=== PATIENT | female | born 1965 | race Caucasian/White ===

== ENCOUNTER → 2020-11-09 12:21 | Outpatient (CLI) | payer BC, SELFPAY ==
[2020-11-09 15:26] LABS: Absolute Lymphocyte Count 2.77 X10^3/uL (0.83-4.51); Absolute Neutrophil Count 6.7 X10^3/uL (2.0-7.7); Basophil# 0.04 X10^3/uL; Basophil% 0.4 % (0-1); Eosinophil# 0.28 X10^3/uL; Eosinophils% 2.7 % (0-5); Hemoglobin 13.2 g/dL (12.0-15.0); Lymphocyte # 2.77 X10^3/ul (4.0); Lymphocyte % 26.6 % (19-41); Mean Corp Hgb Conc 31.4 g/dL (32-36); Mean Corpuscular Hgb 28.4 pg (27.0-32.0); Mean Corpuscular Volume 90.5 fL (81-99); Mean Platelet Vol. 9.9 fl (6.2-12.0); Monocyte% 5.8 % (0-10); NRBC Flagged by Analyzer 0 % (0-5); Neutrophil # 6.68 X10^3/uL (2.7-7.7); Neutrophil % 64.2 % (47-70); Platelet Count 394 K/mm3 (150-450); RBC Distribution Width CV 12.8 % (11.6-14.6); RBC Distribution Width SD 42.5 fl (35.1-43.9); Red Blood Count 4.64 M/mm3 (4.2-5.4); White Blood Count 10.4 K/mm3 (4.4-11.0)
[2020-11-09 15:57] LABS: ALB/GLOB Ratio 0.8 RATIO (0.9-2.4); AST(SGOT) 16 U/L (15-37); Alanine Aminotransfer ALT/SGPT 21 U/L (13-56); Albumin, Serum 3.4 g/dL (3.2-5.0); Alkaline Phosphatase 108 U/L (45-117); Anion Gap 4 (5-15); BUN 12 mg/dL (7-18); BUN/Creat Ratio 13.4 RATIO (10-20); Calcium,Total 8.8 mg/dL (8.5-10.1); Chloride 104 mmol/L (98-107); EST Glomerular Filtration Rate 69 mL/min (>60); Est Glom Filt Rate - Afr Amer 83 mL/min (>60); Globulin 4.3 g/dL (2.2-4.2); Glucose 95 mg/dL (74-106); Potassium 4.1 mmol/L (3.5-5.1); Protein, Total 7.7 g/dL (6.4-8.2); Sodium Level 136 mmol/L (136-145); Thyroid Stim Hormone (TSH) 1.21 uIU/mL (0.358-3.74)
== END ==
PROVIDERS: PCP Family Medicine; Referring Provider Family Medicine; Visit Provider Family Medicine
DX: I10 Essential (primary) hypertension (principal); E03.9 Hypothyroidism, unspecified
CPT/HCPCS: 36415; 80053; 84443; 85025

== ENCOUNTER → 2020-11-28 08:14 | Outpatient (CLI) | payer BC, SELFPAY ==
[2020-11-28 10:34] LABS: Cholesterol 208 mg/dL (200); High Density Lipoprotein 39 mg/dL; Triglycerides 213 mg/dL; Very Low Density Lipoprotein 43 mg/dL (5-40)
== END ==
PROVIDERS: PCP Family Medicine; Referring Provider Family Medicine; Visit Provider Family Medicine
DX: I10 Essential (primary) hypertension (principal)
CPT/HCPCS: 36415; 80061

== ENCOUNTER → 2020-12-13 14:26 | Outpatient (CLI) | payer BC, SELFPAY ==
--- NOTE | 2020-12-13 14:30 | BI_ITS ---
MAMMOGRAPHY - BILATERAL SCREENING REASON FOR EXAM: Female, 55 years old. Routine annual screening examination. PERTINENT HISTORY: Non-contributory. TECHNIQUE: Digital bilateral breast vincenzo (3D mammographic acquisition) in the CC and MLO projections. 2-D mediolateral oblique (MLO) and craniocaudad (CC) views of both breasts were obtained. CAD: Full Field Digital Mammography with Computer Added Detection was performed. COMPARISON: Comparison is made with prior outside examination dated 07/25/2016. FINDINGS: Breast Composition: The breasts are heterogeneously dense, which may obscure small masses. There are no dominant masses or suspicious calcifications. Small benign-appearing bilateral axillary lymph nodes. No other significant abnormalities are identified. There has been no significant change since the prior study. BI/SCRN MAMM (CAD)W/VINCENZO BILAT IMPRESSION: Stable bilateral screening mammogram. Yearly follow-up mammogram recommended. (A) ASSESSMENT CATEGORY: BIRADS Category 2: Benign. A letter regarding these results will be sent to the patient by the facility within 30 days. Approximately 10% of breast cancers are not detected by mammography. A normal mammogram should not delay biopsy of a clinically suspicious abnormality. [id number] Electronically Signed: Kosta Mendez MD at 15:08 EDT , Service support ,
--- NOTE | 2020-12-13 14:30 | BD_ITS ---
STUDY: DUAL ENERGY X-RAY ABSORPTIOMETRY / DXA REASON FOR EXAM: Female, 55 years old. 733.90OsteopeniaBONE DENSITY REASON FOR EXAM TECHNIQUE: Bone Mineral Density (BMD) measurements of lumbar spine and bilateral hips were obtained. COMPARISON: None. FINDINGS: Lumbar Spine (L1-L4): g/cm2 (1.068) / T-score (-0.9) / Z-score (0.1) Findings are suggestive of normal bone density with a low fracture risk. Left Femur Total: g/cm2 (0.911) / T-score (-0.8) / Z-score (0.0) Left Femoral Neck: g/cm2 (0.806) / T-score (-1.7) / Z-score (-0.5) Right Femur Total: g/cm2 (0.988) / T-score (-0.2) / Z-score (0.6) Right Femoral Neck: g/cm2 (0.871) / T-score (-1.2) / Z-score (-0.1) BD/Dexa Bone Density Study IMPRESSION: The patient is considered osteopenic as outlined below according to World Jan Organization (WHO) criteria with a moderate fracture risk. Reference Information: The T-score is the number of standard deviations above or below the standard which is normal for young adults at their peak bone mineral density. The World Health Organization (WHO) interprets the T-scores as follows: Above -1 Normal bone density Between -1 and -2.5 Osteopenia Equal to / or below -2.5 Osteoporosis As a practical clinical guideline, osteopenia may be graded as follows: Mild -1 through -1.5 Moderate -1.6 through -2.0 Severe -2.1 through -2.4 The Z-score is the number of standard deviations above or below age-matched controls. A Z-score of less than -1.5 would be considered abnormal. References: 1. NIH Osteoporosis and Related Bone Diseases www osteo.org 2. International Society for Clinical Densitometry www iscd.org 3. National Osteoporosis Foundation www nof.org Electronically Signed: Kosta Mendez MD at 15:34 EDT , Service support ,
== END ==
LOC: OPBD 14:28
PROVIDERS: PCP Family Medicine; Referring Provider Family Medicine; Visit Provider Family Medicine
DX: Z12.31 Encounter for screening mammogram for malignant neoplasm of breast (principal); M85.80 Other specified disorders of bone density and structure, unspecified site
CPT/HCPCS: 77063; 77067; 77080

== ENCOUNTER → 2020-12-14 17:17 | Outpatient (CLI) | payer BC, SELFPAY ==
[2020-12-21 05:10] LABS: HPV APTIMA, High Risk Negative (Negative); HPV Reflexed? NOT INDICATED
== END ==
PROVIDERS: PCP Family Medicine; Referring Provider Registered Nurse; Visit Provider Registered Nurse
DX: Z01.419 Encounter for gynecological examination (general) (routine) without abnormal findings (principal)
CPT/HCPCS: 88175; G0145

== ENCOUNTER → 2021-01-11 14:40 | Outpatient (CLI) | payer BC, SELFPAY ==
[2021-01-11 17:51] LABS: Anion Gap 7 (5-15); BUN 13 mg/dL (7-18); BUN/Creat Ratio 12.3 RATIO (10-20); Calcium,Total 9.1 mg/dL (8.5-10.1); Chloride 103 mmol/L (98-107); Creatinine, Serum 1.06 mg/dL (0.55-1.02); EST Glomerular Filtration Rate 57 mL/min (>60); Est Glom Filt Rate - Afr Amer 69 mL/min (>60); Glucose 168 mg/dL (74-106); Potassium 3.5 mmol/L (3.5-5.1); Sodium Level 138 mmol/L (136-145)
== END ==
LOC: MFPLAB 14:41
PROVIDERS: PCP Family Medicine; Referring Provider Family Medicine; Visit Provider Family Medicine
DX: I10 Essential (primary) hypertension (principal)
CPT/HCPCS: 36415; 80048

== ENCOUNTER 2022-04-08 11:25 | Emergency (ER) | payer BC, SELFPAY ==
[2022-04-08 11:27] VITALS: BP 187/99; PULSE 96; RESP 18; TEMP 36.4; O2SAT 99; BMI 36.0
[2022-04-08 11:42] VITALS: BP 225/95; PULSE 84
[2022-04-08 11:51] VITALS: BP 176/95
--- NOTE | 2022-04-08 11:56 | EKG12_ITS ---
Test Reason : confusion Blood Pressure : / mmHG Vent. Rate : 071 BPM Atrial Rate : 071 BPM P-R Int : 140 ms QRS Dur : 096 ms QT Int : 382 ms P-R-T Axes : 040 055 052 degrees QTc Int : 415 ms Normal sinus rhythm Normal ECG Confirmed by GABRIELE ANAYA, VIVIEN ([id number]), technical editor HAYLEY MAC ([id number]) on 04/09/2022 11:08:36 AM Referred By: Julio C Confirmed By:VIVIEN SUAZO MD
--- NOTE | 2022-04-08 11:56 | RAD_ITS ---
STUDY: X-RAY CHEST REASON FOR EXAM: Female, 56 years old. Hypertension. Vertigo. TECHNIQUE: Single AP portable view of the chest. COMPARISON: None. FINDINGS: EKG electrodes are seen. Hyperinflation. The lungs are clear. There is no demonstrated pleural abnormality. Normal size heart. Normal mediastinum and fredis. Normal visualized pulmonary arteries. Normal visualized aortic arch and descending thoracic aorta. Normal visualized thoracic spine. Normal visualized ribs, clavicles, and shoulders. There is no demonstrated abnormality of the visualized soft tissue structures of the upper abdomen. RAD/Chest 1 View (Portable) IMPRESSION: Hyperinflation. The lungs are clear. Electronically Signed: Kosta Mendez MD at 12:46 EDT ,
--- NOTE | 2022-04-08 11:56 | CT_ITS ---
STUDY: CT BRAIN WITHOUT CONTRAST REASON FOR EXAM: Female, 56 years old. Confusion RADIATION DOSAGE (If Supplied By Facility): CTDIvol = ( 44.99 ) mGy, DLP = ( 796.11 ) mGycm TECHNIQUE: Transaxial CT imaging of the brain was performed without administration of intravenous contrast material. Individualized dose optimization techniques were used for this CT. COMPARISON: No relevant priors. FINDINGS: Normal soft tissue structures. There is hyperostosis frontalis internus. Normal size ventricles and extra-axial spaces for the patient''s age. There is a 3 mm lacuna in the deep right frontal lobe. Normal white matter tracts of the cerebral hemispheres. There are small punctate calcifications of the basal ganglia which are seen in the aging brain as a normal variant. Normal brainstem. Normal cerebellum. There is no intracranial hemorrhage. There are no findings of an acute ischemic infarction. Atherosclerotic plaque formation of the vertebral arteries and cavernous portions of the internal carotid arteries bilaterally. Normal visualized paranasal sinuses. CT/Brain/Head without Contrast IMPRESSION: 3 mm lacuna in the deep right frontal lobe. Electronically Signed: Kosta Mendez MD at 12:32 EDT ,
--- NOTE | 2022-04-08 11:58 | EDS_ITS ---
HPI History of Present Illness Chief Complaint: Confusion Detail of Chief Complaint: Confusion that began around 9 AM Informant: patient Narrative Narrative: Patient presents to the emergency department with an episode of confusion around 9 AM. Patient states she had gone to the restroom to urinate and before she even started standing up she started feeling odd. Patient felt like everything slowed down including her speech. Patient felt somewhat lightheaded and fell like she needed to hold onto things so she did not fall or pass out. She denies vertiginous symptoms. Patient denied weakness in the extremities and denied slurred speech. She denied vision changes. She denied facial droop. Patient states symptoms lasted about an hour and a half and then slowly started to resolve. She is never had an episode like that before. Patient currently being treated for UTI and is on Bactrim. Patient still with some dysuria. Currently patient symptoms resolved and she is back to her baseline. Prior similar symptoms: No [facility] Medical History (Updated 04/08/22 @ 15:[address] Kana Chery, ) HTN (hypertension) Hypothyroid Home Medications lisinopril 20 mg-hydrochlorothiazide 12.5 mg tablet 1 tab PO DAILY 04/08/22 [History Last Taken Unknown] phenazopyridine 200 mg tablet 200 mg PO BID 04/08/22 [History Last Taken Unknown] progesterone micronized 200 mg capsule 200 cap PO DAILY 04/08/22 [History Last Taken Unknown] sulfamethoxazole 800 mg-trimethoprim 160 mg tablet 1 tab PO BID 04/08/22 [History Last Taken Unknown] thyroid (pork) 30 mg tablet ([place] Thyroid) 1 tab PO DAILY 04/08/22 [History Last Taken Unknown] Allergy/AdvReac Type Severity Reaction Status Date / Time codeine Allergy Nausea Verified 04/08/22 11:26 Penicillins [PCN] Allergy Rash Verified 04/08/22 11:26 Social History Smoking Status: Current every day smoker tobacco type: e-cigarettes ROS ROS ED Review of Systems ROS Unobtainable: other Constitutional Constitutional ED: Reports lethargy; Denies chills, fever(s), sweats or weight loss Eyes Eyes: Denies blurry vision, change in vision or diplopia ENT ENT ED: Denies rhinorrhea or sore throat Cardiovascular Cardiovascular: Denies chest pain, orthopnea or racing heartbeat Respiratory/Chest Respiratory/Chest: Reports dyspnea and dyspnea on exertion; Denies cough, orthopnea or sputum Gastrointestinal Gastrointestinal: Denies abdominal pain, diarrhea, nausea or vomiting Genitourinary Genitourinary ED: Denies dysuria, hematuria or urinary frequency Musculoskeletal Musculoskeletal: Denies arthralgias, back pain, myalgias or neck pain Integumentary Denies abscess, Abrasions or rash Neurologic Neurologic: Reports other Details: Confusion, lightheadedness, slow speech ; Denies headache(s) or weakness Psychiatric Psychiatric: Denies anxiety, depression or suicidal thoughts Endocrine Endocrinology: Denies polydipsia, polyphagia or polyuria Hematologic/Lymphatic Hematologic/Lymphatic: Denies easy bleeding, easy bruising or lymphadenopathy Allergic/Immunologic Allergic/Immunologic ED: Denies mouth swelling, tongue swelling or urticaria EXAM Physical Exam Const Vital Signs: 04/08/22 11:27 04/08/22 11:42 04/08/22 11:51 Temperature 97.6 F L Temperature Source Temporal Pulse Rate 96 84 Respiratory Rate 18 Blood Pressure 187/99 H 225/95 H 176/95 H Blood Pressure Mean 128 138 122 Pulse Ox 99 Oxygen Delivery Method Room Air 04/08/22 13:44 Temperature Temperature Source Pulse Rate 79 Respiratory Rate 18 Blood Pressure 118/78 Blood Pressure Mean 91 Pulse Ox 98 Oxygen Delivery Method Room Air Positive well nourished and well developed General Appearance ED: well developed and NAD HEENT Reports TM's clear and moist mucous membranes normocephalic and atraumatic; Negative for trauma or tenderness Tympanic Membrane ED: Yes TM's clear Eyes PERRL and EOMs intact bilaterally General Eye ED: Negative for pale conjunctiva or scleral icterus Neck no lymphadenopathy, supple and no JVD General: Negative for tenderness Chest Wall inspection of chest normal and palpation of chest normal Chest: Negative for tenderness Resp normal respiratory effort and clear to auscultation bilaterally Effort and Inspection: Negative for respiratory distress or pain with movement Auscultation: Negative for rhonchi, wheezes or diminished lung sounds Cardio regular rate, regular rhythm, S1 normal heart sound, S2 normal heart sound and no murmurs Peripheral Pulses: pulses 2+ throughout GI normal to inspection, nondistended, normoactive bowel sounds, soft to palpation, non-tender, non-distended and no masses Back/Spine no CVA tenderness and no thoracic nor lumbar tenderness Extremity normal to inspection General Extremety ED: Negative for edema General Extremity: Negative for edema Neuro oriented x3, CN's II-XII intact bilaterally, no sensory deficits noted and gait normal Neuro Narrative: Finger-nose and heel gastelum testing within normal limits, negative Romberg, negative for drift, fundi benign. NIH stroke scale 0. Sensorium / Orientation: awake, alert, oriented to person, oriented to place and oriented to time Motor Exam: strength 5/5 throughout and strength abnormal Psych mental status grossly normal Skin no rashes or lesions noted and no wounds MDM MDM MDM Narrative Medical decision making narrative: Lab work unremarkable. CT scan of the brain initially showed lacunar infarct in the right frontal white matter and calcifications in the carotid arteries. I did obtain CTAs of the head and neck which showed 50 to 60% stenosis of the carotid arteries with no large vessel occlusions noted. I discussed case with hospitalist who recommended obtaining an MRI of the brain and if normal patient could be discharged to home. MRI results pending and case turned over to evening physician awaiting results. Lab Data Attestation: I reviewed the patient's lab results. Labs: Laboratory Results - last 24 hr 04/08/22 04/08/22 04/08/22 11:45 11:50 11:50 WBC 9.3 RBC 4.46 Hgb 13.2 Hct 40.8 MCV 91.5 MCH 29.6 MCHC 32.4 RDW Std Deviation 40.5 RDW Coeff of Christiano 12.1 Plt Count 388 MPV 9.3 Immature Gran % (Auto) 0.500 Neut % (Auto) 62.5 Lymph % (Auto) 27.1 Castro % (Auto) 5.9 Eos % (Auto) 3.7 Baso % (Auto) 0.3 Absolute Neuts (auto) 5.8 Absolute Lymphs (auto) 2.52 Nucleated RBC % 0 Sodium 137 Potassium 3.5 Chloride 103 Carbon Dioxide 29.0 Anion Gap 5 BUN 9 Creatinine 0.78 Estim Creat Clear Calc 76.45 Est GFR (MDRD) Af Amer 97 Est GFR (MDRD) Non-Af 80 BUN/Creatinine Ratio 11.5 Glucose 125 H Calcium 9.2 Troponin I High Sens 6 Urine Color Yellow Urine Clarity Sl. Cloudy Urine pH 7.0 Ur Specific [place] 1.010 Urine Protein Negative Urine Glucose (UA) Normal Urine Ketones Negative Urine Occult Blood 10 H Urine Nitrite Negative Urine Bilirubin Negative Urine Urobilinogen Normal Ur Leukocyte Esterase 25 H Urine RBC 0-5 SEEN Urine WBC 0-5 SEEN Ur Squamous Epith Cells 0-5 SEEN Urine Bacteria 1+ Urine Mucus 0 SEEN Radiography Diagnostic Testing: Clinical Impression(s) from Imaging Studies Brain CT 04/08/22 11:56 IMPRESSION: 3 mm lacuna in the deep right frontal lobe. Electronically Signed: Kosta Mendez MD at 12:32 EDT , Chest X-Ray 04/08/22 11:56 IMPRESSION: Hyperinflation. The lungs are clear. Electronically Signed: Kosta Mendez MD at 12:46 EDT , Head/Neck CTA 04/08/22 12:47 IMPRESSION: Atherosclerotic plaque formation at the origin of the right internal carotid artery causing between 50 and 69% stenosis. Atherosclerotic plaque formation at the origin of the left internal carotid artery causing less than 50% stenosis. Electronically Signed: Kosta Mendez MD at 13:42 EDT , 1 view chest x-ray obtained interpreted by myself no acute disease process. Radiology in agreement. EKG Initial EKG: Attestation: I personally reviewed and interpreted this EKG as follows: Comments: Sinus rhythm with a rate of 71 bpm with no acute ST segment changes Discharge Plan Triage Chief Complaint: Confusion Other Complaint: Syncope ED Provider: Kana Chery Dx/Rx/DC Orders Clinical Impression: Altered mental status Prescriptions: No Action lisinopril-hydrochlorothiazide 20-12.5 mg tablet 1 tab PO DAILY Label Comments: TAKE 1 TABLET BY MOUTH EVERY DAY phenazopyridine 200 mg tablet 200 mg PO BID Label Comments: TAKE 1 TABLET BY MOUTH THREE TIMES A DAY sulfamethoxazole-trimethoprim 800-160 mg tablet 1 tab PO BID Label Comments: TAKE 1 TABLET BY MOUTH TWICE A DAY progesterone micronized 200 mg capsule 200 cap PO DAILY Label Comments: TAKE 1 CAPSULE BY MOUTH DAILY thyroid (pork) [[place] Thyroid] 30 mg tablet 1 tab PO DAILY Label Comments: TAKE 1 TABLET BY MOUTH EVERY MORNING ON EMPTY STOMACH Primary Care Provider: Sourav Xie Referrals: Sourav Xie MD [Primary Care Provider] -
[2022-04-08] MEDS: 0.9% Normal Saline 1,000 ML 1000 ML IV (12:03)
[2022-04-08 12:06] LABS: Mucous, Urine 0 SEEN /hpf (<or=2+)
[2022-04-08 12:09] LABS: Absolute Lymphocyte Count 2.52 X10^3/uL (0.83-4.51); Absolute Neutrophil Count 5.8 X10^3/uL (2.0-7.7); Basophil# 0.03 X10^3/uL; Basophil% 0.3 % (0-1); Eosinophil# 0.34 X10^3/uL; Eosinophils% 3.7 % (0-5); Hematocrit 40.8 % (37-47); Hemoglobin 13.2 g/dL (12.0-15.0); Lymphocyte # 2.52 X10^3/ul (0.83-4.51); Lymphocyte % 27.1 % (19-41); Mean Corp Hgb Conc 32.4 g/dL (32-36); Mean Corpuscular Hgb 29.6 pg (27.0-32.0); Mean Corpuscular Volume 91.5 fL (81-99); Mean Platelet Vol. 9.3 fl (6.2-12.0); Monocyte# 0.55 X10^3/uL; Monocyte% 5.9 % (0-10); NRBC Flagged by Analyzer 0 % (0-5); Neutrophil # 5.82 X10^3/uL (2.7-7.7); Neutrophil % 62.5 % (47-70); Platelet Count 388 K/mm3 (150-450); RBC Distribution Width CV 12.1 % (11.6-14.6); RBC Distribution Width SD 40.5 fl (35.1-43.9); Red Blood Count 4.46 M/mm3 (4.2-5.4); White Blood Count 9.3 K/mm3 (4.4-11.0)
[2022-04-08 12:24] LABS: Color, Urine Yellow (Yellow); Glucose, Dipstick Normal (Normal); Ketone-Dipstick Negative (Negative); Leukocyte Esterase-Dipstick 25 /ul (Negative); Nitrite-Dipstick Negative (Negative); Occult Blood-Urine 10 /ul (Negative); Protein-Dipstick Negative (Negative); Urine Bilirubin Dipstick Negative (Negative); Urine Clarity Sl. Cloudy (Clear); Urine Urobilinogen Normal (Normal)
[2022-04-08 12:34] LABS: Anion Gap 5 (5-15); BUN 9 mg/dL (7-18); BUN/Creat Ratio 11.5 RATIO (10-20); Calcium,Total 9.2 mg/dL (8.5-10.1); Chloride 103 mmol/L (98-107); Creatinine, Serum 0.78 mg/dL (0.55-1.02); EST Glomerular Filtration Rate 80 mL/min (>60); Est Glom Filt Rate - Afr Amer 97 mL/min (>60); Estimated Creatinine Clearance 76.45 ml/min; Glucose 125 mg/dL (74-106); Potassium 3.5 mmol/L (3.5-5.1); Sodium Level 137 mmol/L (136-145); Troponin-I HS 6 pg/mL (3.0-54.0)
[2022-04-08 12:39] LABS: Red Blood Cells-Urine 0-5 SEEN /hpf (0-5); Squamous Epithelial Cells - UA 0-5 SEEN /hpf (5-10)
[2022-04-08 12:40] LABS: Bacteria 1+ /hpf (None Seen); White Blood Cells 0-5 SEEN /hpf (0-5)
--- NOTE | 2022-04-08 12:47 | CT_ITS ---
STUDY: CTA HEAD AND NECK WITH CONTRAST REASON FOR EXAM: Female, 56 years old. tia RADIATION DOSAGE (If Supplied By Facility): CTDIvol = ( 20.07 ) mGy, DLP = ( 785.25 ) mGycm TECHNIQUE: CT angiography was performed with a multi-detector CT scanner. Data acquisition was obtained from the skull base through the vertex following intravenous administration of IV 100mL [id number]-[id number]. MIP images were reconstructed from the axial data set. Post-processing of the angiographic images was performed, with multiplanar reformation and 3D reconstruction. Individualized dose optimization techniques were used for this CT. COMPARISON: No relevant priors. FINDINGS: Normal bilateral petrous carotid arteries. There is calcified plaque formation of the right cavernous carotid artery, without a cross-sectional luminal stenosis. There is calcified plaque formation of the left cavernous carotid artery, without a cross-sectional luminal stenosis. Normal right A1 segments of the anterior cerebral artery. Normal left A1 segments of the anterior cerebral artery. Normal intact anterior communicating artery (ACOM). Normal bilateral A2 segments of the anterior cerebral arteries. Normal right M1 and M2 segments of the middle cerebral arteries, with a normal M1 bifurcation. Normal left M1 and M2 segments of the middle cerebral arteries, with a normal M1 bifurcation. Normal right posterior communicating artery (PCOM). Normal left posterior communicating artery (PCOM). Normal bilateral vertebral arteries. Normal basilar artery with a normal basilar bifurcation. The visualized bilateral superior cerebellar (SCA) arteries are normal. Normal bilateral P1, P2 and visualized P3 segments of the posterior cerebral arteries. There is no demonstrated aneurysm of the [place] of [place]. AORTIC ARCH: There is atherosclerotic calcific plaque formation of the aortic arch and great vessels arising from the aortic arch, without a hemodynamically significant stenosis. There is a normal origin of the brachiocephalic, left common carotid, and left subclavian arteries. RIGHT CAROTID ARTERIES: Normal right common carotid artery (CCA). Normal right common carotid bulb. There is moderate atherosclerotic plaque formation of the origin of the right internal carotid artery with an estimated stenosis of 50-69% stenosis. Normal visualized cervical portion of the right internal carotid artery. Normal origin of the right external carotid artery (ECA). LEFT CAROTID ARTERIES: Normal left common carotid artery (CCA). Normal left common carotid bulb. There is mild atherosclerotic plaque formation of the origin of the left internal carotid artery with less than 50% cross sectional diameter stenosis. Normal visualized cervical portion of the left internal carotid artery. Normal origin of the left external carotid artery (ECA). VERTEBRAL ARTERIES: Normal bilateral vertebral arteries. CT/CTA Head AND Neck W/ Contrast IMPRESSION: Atherosclerotic plaque formation at the origin of the right internal carotid artery causing between 50 and 69% stenosis. Atherosclerotic plaque formation at the origin of the left internal carotid artery causing less than 50% stenosis. Electronically Signed: Kosta Mendez MD at 13:42 EDT ,
[2022-04-08 13:44] VITALS: BP 118/78; PULSE 79; RESP 18; O2SAT 98
--- NOTE | 2022-04-08 14:28 | MRI_ITS ---
EXAM: MR HEAD WITHOUT INTRAVENOUS CONTRAST CLINICAL INDICATION: TIA. TECHNIQUE: Multiplanar and multisequence MR images of the brain were obtained without intravenous contrast. This report was created using [employer] report generation technology. COMPARISON: CT head without contrast and CTA head and neck with contrast 04/08/2022. FINDINGS: BRAIN AND EXTRA-AXIAL SPACES: Unremarkable. No intra- or extra-axial hemorrhage. No evidence of acute infarct. No intracranial mass or mass effect. There is preservation of the posada/white matter interface. Posterior fossa structures are unremarkable. Ventricles are appropriate for age. No hydrocephalus. Basal cisterns are patent. SELLA: Unremarkable. Normal sella turcica, pituitary gland, infundibular stalk, optic chiasm and hypothalamus. AUDITORY SYSTEM: Unremarkable. The internal auditory canals are patent. BONES/JOINTS: Unremarkable. No discrete lytic or blastic abnormalities. SINUSES: Unremarkable as visualized. Clear. MASTOID AIR CELLS: Unremarkable as visualized. Clear. ORBITS: Unremarkable as visualized. Both globes, extraocular muscles, optic nerves and retrobulbar fat appear unremarkable. VASCULATURE: Unremarkable as visualized. Normal flow voids in the major intracranial circulation. MRI/Brain without Contrast IMPRESSION: Normal MRI brain without intravenous contrast. Electronically Signed: Efren Fernández MD at 15:47 EDT ,
[2022-04-08 16:35] VITALS: BP 121/78; PULSE 74; RESP 16; O2SAT 98
== END 2022-04-08 16:37 | disposition home or self-care (01) ==
PROVIDERS: Emergency Provider Emergency Medicine; PCP Family Medicine; Visit Provider Emergency Medicine
DX: R55 Syncope and collapse (principal); I63.81 Other cerebral infarction due to occlusion or stenosis of small artery; I65.23 Occlusion and stenosis of bilateral carotid arteries; M48.02 Spinal stenosis, cervical region; I10 Essential (primary) hypertension; F17.210 Nicotine dependence, cigarettes, uncomplicated; E03.9 Hypothyroidism, unspecified
CPT/HCPCS: 70450; 70496; 70498; 70551; 71045; 80048; 81001; 84484; 85025; 93005; 99283; J7030; Q9967

== ENCOUNTER → 2022-04-22 | Outpatient (CLI) | payer BC, SELFPAY | END | disposition home or self-care (01) | PROVIDERS: PCP Family Medicine; Visit Provider Family Medicine | DX: U07.1 COVID-19 (principal) | CPT/HCPCS: 87635; U0003; U0005 ==

== ENCOUNTER 2025-09-05 19:27 | Inpatient (IN) | payer SELFPAY ==
[2025-09-05] VITALS (8 sets, daily range): BP systolic 133–179; BP diastolic 87–125; PULSE 72–79; RESP 12–23; TEMP 36.1–36.5; O2SAT 92–97; BMI 35.6; BMI 33.5
--- NOTE | 2025-09-05 20:14 | EKG12_ITS ---
Test Reason : CONFUSION Blood Pressure : */* mmHG Vent. Rate : 79 BPM Atrial Rate : 79 BPM P-R Int : 162 ms QRS Dur : 98 ms QT Int : 358 ms P-R-T Axes : 45 39 25 degrees QTcB Int : 410 ms Normal sinus rhythm Nonspecific T wave abnormality Abnormal ECG Confirmed by TONY ANAYA, DEEPA ([id number]), design editor MARIPOSA GALLOWAY ([id number]) on 09/11/2025 6:19:41 AM Referred By: Confirmed By: DEEPA JIMENEZ MD
--- NOTE | 2025-09-05 20:14 | CT_ITS ---
PROCEDURE: BRAIN/HEAD WITHOUT CONTRAST 09/05/2025 REASON FOR EXAM: AMS TECHNIQUE: Procedure Code: CTBR Modality: CT Procedure: BRAIN/HEAD WITHOUT CONTRAST Coronal and Sagittal reconstruction series were provided. One or more dose reduction techniques were used (e.g., Automated exposure control, adjustment of the mA and/or kV according to patient size, use of iterative reconstruction technique. RADIATION DOSE SUMMARY: CTDlvol: 44.99 mGy DLP: 897 mGycm COMPARISON: 04/08/2022 FINDINGS: BRAIN: No acute intraparenchymal hemorrhage. No mass lesion. No CT evidence for acute territorial infarct. No midline shift or extra-axial collection. VENTRICLES: No hydrocephalus. ORBITS: The orbits are unremarkable. SINUSES AND MASTOIDS: The paranasal sinuses and mastoid air cells are clear. SOFT TISSUES: No acute abnormality seen. BONES: No acute osseous abnormality seen. OTHER: Calcified carotid siphons and vertebral arteries. CT/Brain/Head without Contrast IMPRESSION: No acute intracranial abnormality. Reading Location: [id number]
--- OUTSIDE RECORDS SUMMARY | 2025-09-05 20:40 | XMS RPT_ITS | CCD ---
Author Organization [facility] PUBLISHING DIRECTOR [facility] Allergies Allergy Classification Reported Allergen(s) Allergy Type Date of Onset Reaction(s) Facility (2 sources) Codeine Drug Allergy 04-08-2022 Nausea [facility] Work Phone: (2 sources) Penicillins Allergy to substance 04-08-2022 Rash [facility] Work Phone: Medications Current Medications Medication Drug Class(es) Dates Sig (Normalized) Sig (Original) hydroCHLOROthiazide 12.5 mg / lisinopril 20 mg oral tablet (2 sources) Thiazide Diuretic, Angiotensin Converting Enzyme Inhibitor Start: 2 take 1 tablet by mouth once daily Lisinopril-Hydrochl orothiazide Active 1 TABLET PO DAILY April 08, 2022 12:00am phenazopyridine hydrochloride 200 mg oral tablet (2 sources) Start: 2 take 200 mg by mouth twice daily Phenazopyridine Active 200 MG PO TWICE A DAY April 08, 2022 12:00am progesterone 200 mg oral capsule (2 sources) Progesterone Start: 2 take 1 capsule by mouth once daily Progesterone Micronized Active 200 CAP PO DAILY April 08, 2022 12:00am sulfamethoxazole 800 mg / trimethoprim 160 mg oral tablet (2 sources) Dihydrofolate Reductase Inhibitor Antibacterial, Sulfonamide Antimicrobial Start: 2 take 1 tablet by mouth twice daily Sulfamethoxazole-Tr imethoprim Active 1 TABLET PO TWICE A DAY April 08, 2022 12:00am thyroid (half-way) 30 mg oral tablet (2 sources) Start: 2 take 1 tablet by mouth once daily Thyroid (Pork) ([place] Thyroid) 30 mg tablet Active 1 TABLET PO DAILY April 08, 2022 12:00am Problems Problem Classification Problem Date Documented Da te Episodic/Chronic Residual codes; unclassified (2 sources) Altered mental status; Translations: [Altered mental status, unspecified] Episodic Results Test Name Value Interpretation Reference Range Facility COVID 19, ANTHONY WC(RT COLLECT )on 04-22-2022 SARS-CoV-2 (COVID-19) RNA ANTHONY+probe Ql (Unsp spec) Detected Normal Not Detect [facility] Comment on above: Result Comment: Norm al Reference Range: Not Detected Method:(RT-PCR) real-time reverse transcriptase PCR [employer] JONNATHAN Instrument *The Food and Drug Administration (FDA) has issued an Emergency Use Authorization (EAU) for the JONNATHAN SARS-CoV-2 Assay for the rapid detection of the virus that causes COVID-19. This test has been validated, but the FDAs independent review of this validation is pending. *Negative results do not preclude infection and should not be used as the sole basis for treatment or patient management. Optimum specimen types and timing for peak viral levels during infections caused by SARS-CoV-2 have not been determined. Collection of multiple specimens from the same patient may be necessary to detect the virus. The possibility of a false negative result should be considered if the patient has clinical presentation or has had recent exposure. Performed By: #### L 3400.2405 ####[facility] [address] [place], [place], [id number] Laboratory - Microbiology an d Antimicrobial susceptibilityon 04-22-2022 SARS-CoV-2 (COVID-19) RNA ANTHONY+probe Ql (Unsp spec) Detected Not Detect [facility] Work Phone: Comment on above: Normal Reference Ran ge: Not DetectedMethod:(RT-PCR) real-time reverse transcriptase PCRLuminex JONNTAHAN Instrument*The Food and Drug Administration (FDA) has issued an Emergency Use Authorization (EAU) for the JONNATHAN SARS-CoV-2 Assay for the rapid detection of the virus that causes COVID-19. This test has been validated, but the FDAs independent review of this validation is pending.*Negative results do not preclude infection and should not be used as the sole basis for treatment or patient management. Optimum specimen types and timing for peak viral levels during infections caused by SARS-CoV-2 have not been determined. Collection of multiple specimens from the same patient may be necessary to detect the virus. The possibility of a false negative result should be considered if the patient has clinical presentation or has had recent exposure. 12 Lead EKGon 04-08-2022 12 Lead EKG [facility] Cardiovascular Services [address] [place] [address] 12 Lead EKG 04/08/22 1203 MR#: [id number] Acct: [id number] Name: MAICOL ALEXANDER Rep #: [id number] : 1965 56 From: Ron De Paz MD Attending Dr: Status: DEP ER Ordering Dr: Kana Chery DO Date: 04/08/22 Location: ED Sex: F C Admitted: Test Reason : confusion Blood Pressure : / mmHG Vent. Rate : 071 BPM Atrial Rate : 071 BPM P-R Int : 140 ms QRS Dur : 096 ms QT Int : 382 ms P-R-T Axes : 040 055 052 degrees QTc Int : 415 ms Normal sinus rhythm Normal ECG Confirmed by GABRIELE ANAYA, RON ([id number]), writer editor HAYLEY MAC ([id number]) on 04/09/2022 11:08:36 AM Referred By: Julio C Confirmed By:RON DE PAZ MD 04/09/22 1108 Date Ron De Paz MD CC: Dr. Sourav Xie MD; Dr. Kana Chery DO Signed Normal [facility] Absolute lymphocyte counton 04-08-2022 Lymphocytes Auto (Unsp spec) [#/Vol] 2.52 10*3/uL 0.83-4.51 [facility] Work Phone: Basic Metabolic Profile (BMP )on 04-08-2022 BUN/CRE 11.5 RATIO Normal 10-20 [facility] Comment on above: Order Comment: 'TROP ' Serial specimen #1, #2 or #3: 1 Performed By: #### L 100.0100, L500.2500, L501.4020 #### [facility] Laboratory [address] [place], [address] CA,Total 9.2 mg/dL Normal 8.5-10.1 [facility] Comment on above: Order Comment: 'TROP ' Serial specimen #1, #2 or #3: 1 Performed By: #### L 100.0100, L500.2500, L501.4020 #### [facility] Laboratory [address] [place], [address] Chloride [Moles/Vol] 103 mmol/L Normal 98-107 [facility] Comment on above: Order Comment: 'TROP ' Serial specimen #1, #2 or #3: 1 Performed By: #### L 100.0100, L500.2500, L501.4020 #### [facility] Laboratory [address] [place], [address] CO2 [Moles/Vol] 29.0 mmol/L Normal 21.0-32.0 [facility] Comment on above: Order Comment: 'TROP ' Serial specimen #1, #2 or #3: 1 Performed By: #### L 100.0100, L500.2500, L501.4020 #### [facility] Laboratory [address] [place], [address] Creatinine [Mass/Vol] 0.78 mg/dL Normal 0.55-1.02 [facility] Comment on above: Order Comment: 'TROP ' Serial specimen #1, #2 or #3: 1 Result Comment: The validity of the calculated GFR GFRAA in patients over 70 years has not been determined. Clinical correlation is essential. Performed By: #### L 100.0100, L500.2500, L501.4020 #### [facility] Laboratory [address] [place], [address] ECRCL 76.45 ml/min Normal [facility] Comment on above: Order Comment: 'TROP ' Serial specimen #1, #2 or #3: 1 Performed By: #### L 100.0100, L500.2500, L501.4020 #### [facility] Laboratory [address] [place], [address] EST GFR - AA 97 mL/min Normal >60 [facility] Comment on above: Order Comment: 'TROP ' Serial specimen #1, #2 or #3: 1 Result Comment: Afri can [place] GFR Calc Performed By: #### L 100.0100, L500.2500, L501.4020 #### [facility] Laboratory [address] [place], [address] GAP 5 Normal 5-15 [facility] Comment on above: Order Comment: 'TROP ' Serial specimen #1, #2 or #3: 1 Performed By: #### L 100.0100, L500.2500, L501.4020 #### [facility] Laboratory [address] [place], [address] GFR/1.73 sq M.predicted among non-blacks MDRD (S/P/Bld) [Vol rate/Area] 80 mL/min/{1.73_m2} Normal >60 [facility] Comment on above: Order Comment: 'TROP ' Serial specimen #1, #2 or #3: 1 Result Comment: Non- GFR Calc Performed By: #### L 100.0100, L500.2500, L501.4020 #### [facility] Laboratory [address] [place], [address] Glucose [Mass/Vol] 125 mg/dL High 74-106 [facility] Comment on above: Order Comment: 'TROP ' Serial specimen #1, #2 or #3: 1 Result Comment: Fast ing Glucose result from 100 to 125 mg/dL suggests IMPAIRED HOMEOSTASIS per A.D.A. criteria. Performed By: #### L 100.0100, L500.2500, L501.4020 #### [facility] Laboratory [address] [place], [address] Potassium [Moles/Vol] 3.5 mmol/L Normal 3.5-5.1 [facility] Comment on above: Order Comment: 'TROP ' Serial specimen #1, #2 or #3: 1 Performed By: #### L 100.0100, L500.2500, L501.4020 #### [facility] Laboratory [address] [place], [address] Sodium [Moles/Vol] 137 mmol/L Normal 136-145 [facility] Comment on above: Order Comment: 'TROP ' Serial specimen #1, #2 or #3: 1 Performed By: #### L 100.0100, L500.2500, L501.4020 #### [facility] Laboratory [address] [place], [address] Urea nitrogen [Mass/Vol] 9 mg/dL Normal 7-18 [facility] Comment on above: Order Comment: 'TROP ' Serial specimen #1, #2 or #3: 1 Performed By: #### L 100.0100, L500.2500, L501.4020 #### [facility] Laboratory [address] [place], [address] Basophil percentageon -- 2021 Basophils/100 WBC (Bld) 0.3 % 0-1 [facility] Work Phone: Chloride [Moles/Vol] 103 mmol/L 98-107 [facility] Work Phone: Eosinophils/100 WBC (Bld) 3.7 % 0-5 [facility] Work Phone: Glucose [Mass/Vol] 125 mg/dL 74-106 [facility] Work Phone: Comment on above: Fasting Glucose resu lt from 100 to 125 mg/dL suggests IMPAIRED HOMEOSTASIS per A.D.A. criteria. Neutrophils (Bld) [#/Vol] 5.8 10*3/uL 2.0-7.7 [facility] Work Phone: Neutrophils/100 WBC (Bld) 62.5 % 47-70 [facility] Work Phone: Potassium [Moles/Vol] 3.5 mmol/L 3.5-5.1 [facility] Work Phone: Sodium [Moles/Vol] 137 mmol/L 136-145 [facility] Work Phone: WBC (Bld) [#/Vol] 9.3 10*3/uL 4.4-11.0 [facility] Work Phone: Basophil percentage 0-5 SEEN /hpf 0-5 [facility] Work Phone: Bilirubin Test strip Ql (U)o n 04-08-2022 Bilirubin Ql (U) Negative Negative [facility] Work Phone: Blood erythrocytes count (nu mber/volume)on 04-08-2022 RBC (Bld) [#/Vol] 4.46 10*6/uL 4.2-5.4 [facility] Work Phone: Blood hemoglobin measurement (mass/volume)on 04-08-2022 Hemoglobin (Bld) [Mass/Vol] 13.2 g/dL 12.0-15.0 [facility] Work Phone: Blood lymphocytes/100 leukoc yteson 04-08-2022 Lymphocytes/100 WBC (Bld) 27.1 % 19-41 [facility] Work Phone: Blood monocytes/100 leukocyt eson 04-08-2022 Monocytes/100 WBC (Bld) 5.9 % 0-10 [facility] Work Phone: Blood platelet mean volumeon 04-08-2022 Platelet mean volume (Bld) [Entitic vol] 9.3 fL 6.2-12.0 [facility] Work Phone: Brain without Contraston Brain without Contrast [facility] Imaging Services [address] [place] [address] Brain without Contrast MR#: [id number] Acct: [id number] Name: MAICOL ALEXANDER Rep #: [id number] : 1965 F 56 From: Efren Fernández MD PCP: Dr. Sourav Xie MD Status: REG ER Study: Brain without Contrast Date of Exam: 04/08/22 Exam# [id number] Ordering Dr: Kana Chery DO EXAM: MR HEAD WITHOUT INTRAVENOUS CONTRAST CLINICAL INDICATION: TIA. TECHNIQUE: Multiplanar and multisequence MR images of the brain were obtained without intravenous contrast. This report was created using [employer] report [employer] technology. COMPARISON: CT head without contrast and CTA head and neck with contrast 04/08/2022. FINDINGS: BRAIN AND EXTRA-AXIAL SPACES: Unremarkable. No intra- or extra-axial hemorrhage. No evidence of acute infarct. No intracranial mass or mass effect. There is preservation of the posada/white matter interface. Posterior fossa structures are unremarkable. Ventricles are appropriate for age. No hydrocephalus. Basal cisterns are patent. SELLA: Unremarkable. Normal sella turcica, pituitary gland, infundibular stalk, optic chiasm and hypothalamus. AUDITORY SYSTEM: Unremarkable. The internal auditory canals are patent. BONES/JOINTS: Unremarkable. No discrete lytic or blastic abnormalities. SINUSES: Unremarkable as visualized. Clear. MASTOID AIR CELLS: Unremarkable as visualized. Clear. ORBITS: Unremarkable as visualized. Both globes, extraocular muscles, optic nerves and retrobulbar fat appear unremarkable. VASCULATURE: Unremarkable as visualized. Normal flow voids in the major intracranial circulation. MRI/Brain without Contrast IMPRESSION: Normal MRI brain without intravenous contrast. Electronically Signed: Efren Fernández MD at 15:47 EDT Reading Location ID and State: [facility] / [place] , Service support , CC: Dr. Sourav Xie MD; Dr. Kana Chery DO Wet Inspector Optical Glass: Signed Normal [facility] Brain/Head without Contrasto n 04-08-2022 Brain/Head without Contrast [facility] Imaging Services [address] [place] [address] Brain/Head without Contrast MR#: [id number] Acct: [id number] Name: MAICOL ALEXANDER Rep #: [id number] : 1965 F 56 From: Kosta ortiz MD PCP: Dr. Sourav Xie MD Status: REG ER Study: Brain/Head without Contrast Date of Exam: 03/28 11/19 Exam# [id number] Ordering Dr: Kana Chery DO STUDY: CT BRAIN WITHOUT CONTRAST REASON FOR EXAM: Female, 56 years old. Confusion RADIATION DOSAGE (If Supplied By Facility): CTDIvol = ( 44.99 ) mGy, DLP = ( 796.11 ) mGycm TECHNIQUE: Transaxial CT imaging of the brain was performed without administration of intravenous contrast material. Individualized dose optimization techniques were used for this CT. COMPARISON: No relevant priors. FINDINGS: Normal soft tissue structures. There is hyperostosis frontalis internus. Normal size ventricles and extra-axial spaces for the patient''s age. There is a 3 mm lacuna in the deep right frontal lobe. Normal white matter tracts of the cerebral hemispheres. There are small punctate calcifications of the basal ganglia which are seen in the aging brain as a normal variant. Normal brainstem. Normal cerebellum. There is no intracranial hemorrhage. There are no findings of an acute ischemic infarction. Atherosclerotic plaque formation of the vertebral arteries and cavernous portions of the internal carotid arteries bilaterally. Normal visualized paranasal sinuses. CT/Brain/Head without Contrast IMPRESSION: 3 mm lacuna in the deep right frontal lobe. Electronically Signed: Kosta Mendez MD at 12:32 EDT Reading Location ID and State: [facility] / [place] , Service support , CC: Dr. Sourav Xie MD; Dr. Kana Chery DO Wet Inspector Optical Glass: Signed Normal [facility] CBC W/Diff, Automatedon 03-28 Absolute Lymph 2.52 X10 3/uL Normal 0.83-4.51 [facility] Comment on above: Performed By: #### L 100.0100, L500.2500, L501.4020 #### [facility] Laboratory [address] [place], [address] Absolute Neut 5.8 X10 3/uL Normal 2.0-7.7 [facility] Comment on above: Performed By: #### L 100.0100, L500.2500, L501.4020 #### [facility] Laboratory [address] [place], [address] Basophils/100 WBC (Bld) 0.3 % Normal 0-1 [facility] Comment on above: Performed By: #### L 100.0100, L500.2500, L501.4020 #### [facility] Laboratory [address] [place], [address] Eosinophils/100 WBC (Bld) 3.7 % Normal 0-5 [facility] Comment on above: Performed By: #### L 100.0100, L500.2500, L501.4020 #### [facility] Laboratory [address] [place], [address] Erythrocyte distribution width (RBC) [Ratio] 12.1 % Normal 11.6-14.6 [facility] Comment on above: Performed By: #### L 100.0100, L500.2500, L501.4020 #### [facility] Laboratory [address] [place], [address] Hematocrit (Bld) [Volume fraction] 40.8 % Normal 37-47 [facility] Comment on above: Performed By: #### L 100.0100, L500.2500, L501.4020 #### [facility] Laboratory [address] [place], [address] Hemoglobin (Bld) [Mass/Vol] 13.2 g/dL Normal 12.0-15.0 [facility] Comment on above: Performed By: #### L 100.0100, L500.2500, L501.4020 #### [facility] Laboratory [address] [place], [address] IG% 0.500 Normal 0.0-0.9 [facility] Comment on above: Result Comment: IG% - Immature Granulocytes (promyelocytes, myelocytes and metamyelocytes) > 1% indicates that a LEFT SHIFT is Present. Performed By: #### L 100.0100, L500.2500, L501.4020 #### [facility] Laboratory [address] [place], [address] Lymphocytes/100 WBC (Bld) 27.1 % Normal 19-41 [facility] Comment on above: Performed By: #### L 100.0100, L500.2500, L501.4020 #### [facility] Laboratory [address] [place], [address] MCH (RBC) [Entitic mass] 29.6 pg Normal 27.0-32.0 [facility] Comment on above: Performed By: #### L 100.0100, L500.2500, L501.4020 #### [facility] Laboratory [address] [place], [address] MCHC (RBC) [Mass/Vol] 32.4 g/dL Normal 32-36 [facility] Comment on above: Performed By: #### L 100.0100, L500.2500, L501.4020 #### [facility] Laboratory [address] [place], [address] MCV (RBC) [Entitic vol] 91.5 fL Normal 81-99 [facility] Comment on above: Performed By: #### L 100.0100, L500.2500, L501.4020 #### [facility] Laboratory [address] [place], [address] Monocytes/100 WBC (Bld) 5.9 % Normal 0-10 [facility] Comment on above: Performed By: #### L 100.0100, L500.2500, L501.4020 #### [facility] Laboratory [address] [place], [address] Neutrophils/100 WBC (Bld) 62.5 % Normal 47-70 [facility] Comment on above: Performed By: #### L 100.0100, L500.2500, L501.4020 #### [facility] Laboratory [address] [place], [address] Nucleated RBC (Bld) [#/Vol] 0 10*3/uL Normal 0-5 [facility] Comment on above: Performed By: #### L 100.0100, L500.2500, L501.4020 #### [facility] Laboratory [address] [place], [address] Platelet mean volume (Bld) [Entitic vol] 9.3 fL Normal 6.2-12.0 [facility] Comment on above: Performed By: #### L 100.0100, L500.2500, L501.4020 #### [facility] Laboratory [address] [place], [address] Platelets (Bld) [#/Vol] 388 10*3/uL Normal 150-450 [facility] Comment on above: Performed By: #### L 100.0100, L500.2500, L501.4020 #### [facility] Laboratory [address] [place], [address] RBC (Bld) [#/Vol] 4.46 10*6/uL Normal 4.2-5.4 [facility] Comment on above: Performed By: #### L 100.0100, L500.2500, L501.4020 #### [facility] Laboratory [address] [place], [address] RDW SD 40.5 fl Normal 35.1-43.9 [facility] Comment on above: Performed By: #### L 100.0100, L500.2500, L501.4020 #### [facility] Laboratory [address] [place], [address] WBC (Bld) [#/Vol] 9.3 10*3/uL Normal 4.4-11.0 [facility] Comment on above: Performed By: #### L 100.0100, L500.2500, L501.4020 #### [facility] Laboratory [address] [place], [address] CTA Head AND Neck W/ Contras ton 04-08-2022 CTA Head AND Neck W/ Contrast [facility] Imaging Services [address] [place] [address] CTA Head AND Neck W/ Contrast MR#: [id number] Acct: [id number] Name: MAICOL ALEXANDER Rep #: [id number] : 1965 F 56 From: Kosta ortiz MD PCP: Dr. Sourav Xie MD Status: REG ER Study: CTA Head AND Neck W/ Contrast Date of Exam: Exam# [id number] Ordering Dr: Kana Chery DO STUDY: CTA HEAD AND NECK WITH CONTRAST REASON FOR EXAM: Female, 56 years old. tia RADIATION DOSAGE (If Supplied By Facility): CTDIvol = ( 20.07 ) mGy, DLP = ( 785.25 ) mGycm TECHNIQUE: CT angiography was performed with a multi-detector CT scanner. Data acquisition was obtained from the skull base through the vertex following intravenous administration of IV 100mL Isovue-370. MIP images were reconstructed from the axial data set. Post-processing of the angiographic images was performed, with multiplanar reformation and 3D reconstruction. Individualized dose optimization techniques were used for this CT. COMPARISON: No relevant priors. FINDINGS: Normal bilateral petrous carotid arteries. There is calcified plaque formation of the right cavernous carotid artery, without a cross-sectional luminal stenosis. There is calcified plaque formation of the left cavernous carotid artery, without a cross-sectional luminal stenosis. Normal right A1 segments of the anterior cerebral artery. Normal left A1 segments of the anterior cerebral artery. Normal intact anterior communicating artery (ACOM). Normal bilateral A2 segments of the anterior cerebral arteries. Normal right M1 and M2 segments of the middle cerebral arteries, with a normal M1 bifurcation. Normal left M1 and M2 segments of the middle cerebral arteries, with a normal M1 bifurcation. Normal right posterior communicating artery (PCOM). Normal left posterior communicating artery (PCOM). Normal bilateral vertebral arteries. Normal basilar artery with a normal basilar bifurcation. The visualized bilateral superior cerebellar (SCA) arteries are normal. Normal bilateral P1, P2 and visualized P3 segments of the posterior cerebral arteries. There is no demonstrated aneurysm of the [place]. AORTIC ARCH: There is atherosclerotic calcific plaque formation of the aortic arch and great vessels arising from the aortic arch, without a hemodynamically significant stenosis. There is a normal origin of the brachiocephalic, left common carotid, and left subclavian arteries. RIGHT CAROTID ARTERIES: Normal right common carotid artery (CCA). Normal right common carotid bulb. There is moderate atherosclerotic plaque formation of the origin of the right internal carotid artery with an estimated stenosis of 50-69% stenosis. Normal visualized cervical portion of the right internal carotid artery. Normal origin of the right external carotid artery (ECA). LEFT CAROTID ARTERIES: Normal left common carotid artery (CCA). Normal left common carotid bulb. There is mild atherosclerotic plaque formation of the origin of the left internal carotid artery with less than 50% cross sectional diameter stenosis. Normal visualized cervical portion of the left internal carotid artery. Normal origin of the left external carotid artery (ECA). VERTEBRAL ARTERIES: Normal bilateral vertebral arteries. CT/CTA Head AND Neck W/ Contrast IMPRESSION: Atherosclerotic plaque formation at the origin of the right internal carotid artery causing between 50 and 69% stenosis. Atherosclerotic plaque formation at the origin of the left internal carotid artery causing less than 50% stenosis. Electronically Signed: Kosta Mendez MD at 13:42 EDT , CC: Dr. Sourav Xie MD; Dr. Kana Chery DO Wet Inspector Optical Glass: Signed Normal [facility] Chest 1 View (Portable)on Chest 1 View (Portable) [facility] Imaging Services [address] [place] [address] Chest 1 View (Portable) MR#: [id number] Acct: [id number] Name: MAICOL ALEXANDER Rep #: [id number] : 1965 F 56 From: Kosta ortiz MD PCP: Dr. Sourav Xie MD Status: REG ER Study: Chest 1 View (Portable) Date of Exam: 04/08/22 Exam# [id number] Ordering Dr: Kana Chery DO STUDY: X-RAY CHEST REASON FOR EXAM: Female, 56 years old. Hypertension. Vertigo. TECHNIQUE: Single AP portable view of the chest. COMPARISON: None. FINDINGS: EKG electrodes are seen. Hyperinflation. The lungs are clear. There is no demonstrated pleural abnormality. Normal size heart. Normal mediastinum and fredis. Normal visualized pulmonary arteries. Normal visualized aortic arch and descending thoracic aorta. Normal visualized thoracic spine. Normal visualized ribs, clavicles, and shoulders. There is no demonstrated abnormality of the visualized soft tissue structures of the upper abdomen. RAD/Chest 1 View (Portable) IMPRESSION: Hyperinflation. The lungs are clear. Electronically Signed: Kosta Mendez MD at 12:46 EDT , CC: Dr. Sourav Xie MD; Dr. Kana Chery DO Wet Inspector Optical Glass: Signed Normal [facility] Determination of erythrocyte mean corpuscular volume (MCV)on 04-08-2022 MCV (RBC) [Entitic vol] 91.5 fL 81-99 [facility] Work Phone: Emergency Department Summary on 04-08-2022 Emergency Department Summary [facility] Medical Records Department [address] [place] [address] Emergency Department Summary 04/08/22 MR#: [id number] Acct: [id number] Name: MAICOL ALEXANDER Rep #: [id number] : 1965 56 From: Kana Chery DO PCP: Dr. Sourav Xie MD Status:REG ER Location: ED ADDENDUM by Dr. Robert Edwards MD on 04/08/22 at 1626 Patient turned over to me from the morning physician Dr. Kana Chery. Patient's work-up is negative. MRI of her brain was read as normal. Clinically she is doing well at 4:25 PM. She will be discharged to home. 04/08/22 1626 Cosigner Signature (if applicable): cc: Dr. Sourav Xie MD * Signed HPI History of Present Illness Chief Complaint: Confusion Detail of Chief Complaint: Confusion that began around 9 AM Informant: patient Narrative Narrative: Patient presents to the emergency department with an episode of confusion around 9 AM. Patient states she had gone to the restroom to urinate and before she even started standing up she started feeling odd. Patient felt like everything slowed down including her speech. Patient felt somewhat lightheaded and fell like she needed to hold onto things so she did not fall or pass out. She denies vertiginous symptoms. Patient denied weakness in the extremities and denied slurred speech. She denied vision changes. She denied facial droop. Patient states symptoms lasted about an hour and a half and then slowly started to resolve. She is never had an episode like that before. Patient currently being treated for UTI and is on Bactrim. Patient still with some dysuria. Currently patient symptoms resolved and she is back to her baseline. Prior similar symptoms: No PFSH PFSH Medical History (Updated 04/08/22 @ 15:[address] Kana Chery DO) HTN (hypertension) Hypothyroid Home Medications lisinopril 20 mg-hydrochlorothiazi de 12.5 mg tablet 1 tab PO DAILY 04/08/22 [History Last Taken Unknown] phenazopyridine 200 mg tablet 200 mg PO BID 04/08/22 [History Last Taken Unknown] progesterone micronized 200 mg capsule 200 cap PO DAILY 04/08/22 [History Last Taken Unknown] sulfamethoxazole 800 mg-trimethoprim 160 mg tablet 1 tab PO BID 04/08/22 [History Last Taken Unknown] thyroid (pork) 30 mg tablet ([place] Thyroid) 1 tab PO DAILY 04/08/22 [History Last Taken Unknown] Allergy/AdvReac Type Severity Reaction Status Date / Time codeine Allergy Nausea Verified 04/08/22 11:26 Penicillins [PCN] Allergy Rash Verified 04/08/22 11:26 Social History Smoking Status: Current every day smoker tobacco type: e-cigarettes ROS ROS ED Review of Systems ROS Unobtainable: other Constitutional Constitutional ED: Reports lethargy; Denies chills, fever(s), sweats or weight loss Eyes Eyes: Denies blurry vision, change in vision or diplopia ENT ENT ED: Denies rhinorrhea or sore throat Cardiovascular Cardiovascular: Denies chest pain, orthopnea or racing heartbeat Respiratory/Chest Respiratory/Chest: Reports dyspnea and dyspnea on exertion; Denies cough, orthopnea or sputum Gastrointestinal Gastrointestinal: Denies abdominal pain, diarrhea, nausea or vomiting Genitourinary Genitourinary ED: Denies dysuria, hematuria or urinary frequency Musculoskeletal Musculoskeletal: Denies arthralgias, back pain, myalgias or neck pain Integumentary Denies abscess, Abrasions or rash Neurologic Neurologic: Reports other Details: Confusion, lightheadedness, slow speech ; Denies headache(s) or weakness Psychiatric Psychiatric: Denies anxiety, depression or suicidal thoughts Endocrine Endocrinology: Denies polydipsia, polyphagia or polyuria Hematologic/Lymphati c Hematologic/Lymphati c: Denies easy bleeding, easy bruising or lymphadenopathy Allergic/Immunologic Allergic/Immunologic ED: Denies mouth swelling, tongue swelling or urticaria EXAM Physical Exam Const Vital Signs: 04/08/22 11:27 04/08/22 11:42 04/08/22 11:51 Temperature 97.6 F L Temperature Source Temporal Pulse Rate 96 84 Respiratory Rate 18 Blood Pressure 187/99 H 225/95 H 176/95 H Blood Pressure Mean 128 138 122 Pulse Ox 99 Oxygen Delivery Method Room Air 04/08/22 13:44 Temperature Temperature Source Pulse Rate 79 Respiratory Rate 18 Blood Pressure 118/78 Blood Pressure Mean 91 Pulse Ox 98 Oxygen Delivery Method Room Air Positive well nourished and well developed General Appearance ED: well developed and NAD HEENT Reports TM's clear and moist mucous membranes normocephalic and atraumatic; Negative for trauma or tenderness Tympanic Membrane ED: Yes TM's clear Eyes PERRL and EOMs intact bilaterally General Eye ED: Negative for pale conjunctiva or scleral icterus Neck no lymphadenopathy, supple and no JVD General: Negative for tenderness Chest Wall (more content not included)... Normal [facility] Hematocrit Auto (Bld) [Volum e fraction]on 04-08-2022 Hematocrit (Bld) [Volume fraction] 40.8 % 37-47 [facility] Work Phone: Ketones Test strip Ql (U)on 04-08-2022 Ketones Ql (U) Negative Negative [facility] Work Phone: [phone] 04-08-2022 TROPONIN-I HS 6 pg/mL Normal 3.0-54.0 [facility] Comment on above: Order Comment: 'TROP ' Serial specimen #1, #2 or #3: 1 Result Comment: Plea se Note: New Test Units and Gender Specific Reference Ranges. For more information see Policy Stat Procedure [place] High Sensitivity Troponin (TNIH) and attachments. Performed By: #### L 100.0100, L500.2500, L501.4020 #### [facility] Laboratory [address] [place], [place], [id number] Laboratory - Chemistry and C hemistry - challengeon 04-08-2022 CO2 [Moles/Vol] 29.0 mmol/L 21.0-32.0 [facility] Work Phone: Urea nitrogen/Creatinine [Mass ratio] 11.5 mg/mg 10-20 [facility] Work Phone: Laboratory - Hematology and Cell countson 04-08-2022 Erythrocyte distribution width (RBC) [Entitic vol] 40.5 fL 35.1-43.9 [facility] Work Phone: Erythrocyte distribution width (RBC) [Ratio] 12.1 % 11.6-14.6 [facility] Work Phone: Immature granulocytes/100 WBC (Bld) 0.500 % 0.0-0.9 [facility] Work Phone: Comment on above: IG% - Immature Granu locytes (promyelocytes, myelocytes and metamyelocytes) > 1% indicates that a LEFT SHIFT is Present. MCH (RBC) [Entitic mass] 29.6 pg 27.0-32.0 [facility] Work Phone: Nucleated RBC/100 WBC (Bld) [Ratio] 0 % 0-5 [facility] Work Phone: MCHC Auto (RBC) [Mass/Vol]on 04-08-2022 MCHC (RBC) [Mass/Vol] 32.4 g/dL 32-36 [facility] Work Phone: Mucus LM Ql (Urine sed)on Mucus Ql (Urine sed) 0 SEEN /hpf [facility] Work Phone: Nitrite Test strip Ql (U)on 04-08-2022 Nitrite Ql (U) Negative Negative [facility] Work Phone: No Panel Informationon 04-08 Estimated Creatinine Clearance Calc 76.45 ml/min [facility] Work Phone: Estimated GFR (MDRD) Amer 97 mL/min >60 [facility] Work Phone: Comment on above: GFR Calc Estimated GFR (MDRD) Non-Af Amer 80 mL/min >60 [facility] Work Phone: Comment on above: Non- GFR Calc Troponin I High Sensitivity 6 pg/mL 3.0-54.0 [facility] Work Phone: Comment on above: Please Note: New Ruby t Units and Gender Specific Reference Ranges. For more information see Policy Stat Procedure [place] High Sensitivity Troponin (TNIH) and attachments. Platelets bldon 04-08-2022 Platelets (Bld) [#/Vol] 388 10*3/uL 150-450 [facility] Work Phone: Protein Test strip Ql (U)on 04-08-2022 Protein Ql (U) Negative Negative [facility] Work Phone: Serum or plasma calcium celia urement (mass/volume)on 04-08-2022 Calcium [Mass/Vol] 9.2 mg/dL 8.5-10.1 [facility] Work Phone: Serum or plasma creatinine m easurement (mass/volume)on 04-08-2022 Creatinine [Mass/Vol] 0.78 mg/dL 0.55-1.02 [facility] Work Phone: Comment on above: The validity of the calculated GFR & GFRAA in patients over 70 years has not been determined. Clinical correlation is essential. Serum or plasma urea nitroge n measurement (mass/volume)on 04-08-2022 Urea nitrogen [Mass/Vol] 9 mg/dL 7-18 [facility] Work Phone: Squamous epithelial cells de tection in urine sediment by light microscopyon 04-08-2022 Epithelial cells.squamous LM Ql (Urine sed) 0-5 SEEN /hpf 5-10 [facility] Work Phone: Thin prep Papanicolaou smear with manual screeningon 04-08-2022 Thin prep Papanicolaou smear with manual screening 5 5-15 [facility] Work Phone: Urinalysis, Completeon 04-08 BACTERIA 1+ /hpf Normal None Seen [facility] Comment on above: Order Comment: CLEAN CATCH Performed By: #### L 400.0001 #### [facility] [address] [place], [address] WBC 0-5 SEEN Normal 0-5 [facility] Comment on above: Order Comment: CLEAN CATCH Performed By: #### L 400.0001 #### [facility] [address] [place], [address] EPI,SQUAMOUS 0-5 SEEN Normal 5-10 [facility] Comment on above: Order Comment: CLEAN CATCH Performed By: #### L 400.0001 #### [facility] [address] [place], [place], [id number] RBC 0-5 SEEN Normal 0-5 [facility] Comment on above: Order Comment: CLEAN CATCH Performed By: #### L 400.0001 #### [facility] [address] [place], [address] Mucus Ql (Urine sed) 0 SEEN Normal [facility] Comment on above: Order Comment: CLEAN CATCH Performed By: #### L 400.0001 #### [facility] [address] [place], [place], [id number] [phone] Urine blood detectionon 03-28 RBC Ql (U) 10 /ul Negative [facility] Work Phone: RBC Ql (U) 0-5 SEEN /hpf 0-5 [facility] Work Phone: Urine clarityon 04-08-2022 Clarity (U) Sl. Cloudy Clear [facility] Work Phone: Urine color determinationon 04-08-2022 Color (U) Yellow Yellow [facility] Work Phone: Urine glucose detectionon Glucose Ql (U) Normal mg/dl Normal [facility] Work Phone: Urine leukocyte esterase det ection by dipstickon 04-08-2022 Leukocyte esterase Test strip Ql (U) 25 /ul Negative [facility] Work Phone: Urine pHon 04-08-2022 pH (U) 7.0 [pH] 5.0 - 8.0 [facility] Work Phone: Urine sediment bacteria coun t by microscopy (number/high power field)on 04-08-2022 Bacteria LM.HPF (Urine sed) [#/Area] 1 /[HPF] None Seen [facility] Work Phone: Urine specific gravity measu rementon 04-08-2022 Specific gravity (U) [Rel density] 1.010 1.002-1.030 [facility] Work Phone: Urobilinogen Auto test strip Ql (U)on 04-08-2022 Urobilinogen Ql (U) Normal mg/dl Normal [facility] Work Phone: Vital Signs Date Time Vital Sign Value Performing Clinician Madina lang 04-08-2022 16:35-0400 Diastolic blood pressure 78 mm[Hg] [facility] Work Phone: 04-08-2022 16:35-0400 Heart rate 74 /min [facility] Work Phone: 04-08-2022 16:35-0400 Respiratory rate 16 /min [facility] Work Phone: 04-08-2022 16:35-0400 SaO2% (BldA) [Mass fraction] 98 % [facility] Work Phone: 04-08-2022 16:35-0400 Systolic blood pressure 121 mm[Hg] [facility] Work Phone: 04-08-2022 11:27-0400 Body height 170.18 cm [facility] Work Phone: 04-08-2022 11:27-0400 Body mass index (BMI) [Ratio] 36 kg/m2 [facility] Work Phone: 04-08-2022 11:27-0400 Body temperature 97.6 [degF] [facility] Work Phone: 04-08-2022 11:27-0400 Body weight 104.32 kg [facility] Work Phone: Encounters Encounter Date Encounter Type Care Provider Facility Start: 04-22-2022 End: 04-22-2022 Patient encounter procedure [facility], Specimen Start: 04-08-2022 End: 04-08-2022 Emergency department patient visit [facility]Emergency Department Procedures Date Procedure Procedure Detail Performing Clinician Start: 04-08-2022 MRI of brain without contrast Start: 04-08-2022 CT angiography of he ad and neck Start: 04-08-2022 CT of head without contrast Start: 04-08-2022 Plain chest X-ray Plan of Treatment Date Care Activity Detail Author Patient Education ED ALOC [facility] Work Phone: Patient referral [facility] Work Phone: Payers Date Payer Category Payer Policy ID Self-pay SELF PAY INSURANCE [id number] Unknown [employer] INS[employer]ANCE [id number] Social History Date Type Detail Facility Start: 04-08-2022 Tobacco smoking stat us [facility] Unknown if ever smoked [facility] Work Phone: Start: 1965 Sex Assigned At Female W [facility] Work Phone: Evaluation note Note Date & Type Note Facility Evaluation note No assessment information availa ble [facility] Work Phone: Hospital Discharge instructions Note Date & Type Note Facility Hospital Discharge instructions Additional Instructions Your work-up today was basically normal. Follow-up with your primary care physician if not improving. Return if worse. [facility] Work Phone: Hospital Discharge instructions Note Date & Type Note Facility Hospital Discharge instructions [facility] Work Phone: Chief Complaint and Reason for Visit Chief Complaint confusion, near sync ope Advance Directives No Advanced Directives Records Found Advance Directive Response Recorded Date/ Time Living Will No April 08, 2022 11:41am Power of Respiratory Coordinator No April 08 11:41am Summary Purpose Family History No Family History Records Found Additional Source Comments Goals (unrecognized section and content) Goals may be documented in a n alternate section INFORMATION SOURCE (unrecogn ized section and content) DATE CREATED AUTHOR 05/05/2022 [facility] FOR RECORDS PERTAINING TO PATIENTS WHO ARE OR HAVE BEEN ENROLLED IN A CHEMICAL DEPENDENCY/SUBSTANCEABUSE PROGRAM, SOME INFORMATION MAY BE OMITTED. This clinical summary was aggregated from multiple sources. Caution should be exercised in using it in the provision of clinical care. This summary normalizes information from multiple sources, and as a consequence, information in this document may materially change the coding, format and clinical context of patient data. In addition, data may be omitted in some cases. CLINICAL DECISIONS SHOULD BE BASED ON THE PRIMARY CLINICAL RECORDS. [facility] [employer] [facility] provides no warranty or guarantee of the accuracy or completeness of information in this document.
[2025-09-05 20:41] LABS: Hematocrit 36.2 % (37-47); Hemoglobin 12.0 g/dL (12.0-15.0); Immature Granulocytes Count 0.030 X10^3/uL (0.0-0.0); Mean Corp Hgb Conc 33.1 g/dL (32-36); Mean Corpuscular Volume 89.6 fL (81-99); Mean Platelet Vol. 9.6 fl (6.2-12.0); NRBC Flagged by Analyzer 0 % (0-5); Platelet Count 345 K/mm3 (150-450); RBC Distribution Width CV 12.2 % (11.6-14.6); RBC Distribution Width SD 40.3 fl (35.1-43.9); Red Blood Count 4.04 M/mm3 (4.2-5.4); White Blood Count 11.3 K/mm3 (4.4-11.0)
--- NOTE | 2025-09-05 20:42 | RAD_ITS ---
PROCEDURE: CHEST PA AND LATERAL 09/05/2025 REASON FOR EXAM: AMS TECHNIQUE: Procedure Code: RADCXR Modality: DX Procedure: CHEST PA AND LATERAL COMPARISON: 04/08/2022. FINDINGS: Interval appearance of minimal bilateral basilar atelectatic pulmonary changes. There is no demonstrated pleural abnormality. Normal heart and pericardium. Normal mediastinum and fredis. Normal visualized pulmonary arteries. Normal visualized aortic arch and descending thoracic aorta. Normal visualized thoracic spine. Normal visualized ribs, clavicles, and shoulders. There is no demonstrated abnormality of the visualized soft tissue structures of the upper abdomen. RAD/Chest PA and Lateral IMPRESSION: Interval appearance of minimal bilateral basilar atelectatic pulmonary changes. [facility]
[2025-09-05] MEDS: 0.9% Normal Saline (1000mL) 1,000 ML 1000 ML IV (20:57)
[2025-09-05 21:03] LABS: Alcohol, Blood (Medical)-Serum < 10.1 mg/dL (<=10.0)
[2025-09-05 21:08] LABS: AST(SGOT) 29 U/L (<=31); Alanine Aminotransfer ALT/SGPT 21 U/L (<=34); Albumin, Serum 3.7 g/dL (3.4-4.8); Alkaline Phosphatase 70 U/L (35-104); Anion Gap 10 (5-15); BUN 18 mg/dL (4-19); BUN/Creat Ratio 11.1 RATIO (10-20); Calcium,Total 14.8 mg/dL (7.6-11.0); Carbon Dioxide 29.8 mmol/L (21.0-32.0); Chloride 102 mmol/L (98-108); Estimated Creatinine Clearance 44.72 ml/min (50-250); Globulin 3.2 g/dL (2.2-4.2); Glucose 139 mg/dL (70-99); Potassium 2.9 mmol/L (3.3-5.1)
[2025-09-05 21:17] LABS: Troponin T High Sensitivity 33 ng/L (<=14)
[2025-09-05 22:20] LABS: Mucous, Urine 0 SEEN /hpf (<or=2+)
--- NOTE | 2025-09-05 22:20 | PCM.HP.STD ---
HPI - General General Date of Admission: 09/05/25 Date of Service: 09/05/25 Chief Complaint: Confused, ? Chills, recent UTI dx. HPI Narrative The patient is a 60-year-old female w/ PMHx: Hypothyroidism, Hypertension, Obesity, Tobacco use (Cigarette tobacco->currently heavy vaping) who presents to [facility] ED on 09/05/2025 with confusion ongoing for the last 2 days with then onset of vague nonspecific chest discomfort as well as dyspnea starting the evening prior recently diagnosed with a UTI started on Bactrim with reported potential chills but uncertain prompting eventual ED evaluation. Patient in the emergency room is an extremely poor historian and cannot give correct data but often times repeats statements and is very circular in conversation. Her significant other/apolinar? is present and able to give patient history and recent complaint history. Patient fiyina? does state she takes calcium twice a day as well as vitamin D but he cannot give the current doses or levels at this time but will call them in. He notes she started on these because her doctor in [place] had told her she had osteoporosis. Workup in the ED included T97, heart rate 79, BP 168/119, respiratory rate 22, 95% on room air with most recent repeat vitals T97.6, heart rate 73, BP 179/87, respiratory rate 20, 92% on room air, CBC with WC 11.3, hemoglobin 12, MCV 89.6, platelet 347 with left shift, CMP with potassium 2.9, BUN/creatinine 18/1.61, GFR 36, glucose 139, ethyl alcohol level less than 10.1. In the ED patient ministered 1 L normal saline. FORMERLY [facility], [facility] Medical History Obesity Tobacco use Hypothyroid HTN (hypertension) Home Medications ?Medication ?Instructions ?Recorded ?Last Taken ?Type lisinopril 20 1 tab PO DAILY 04/08/22 Unknown History mg-hydrochlorothiazide 12.5 mg tablet thyroid (pork) 30 mg tablet 1 tab PO DAILY 04/08/22 Unknown History (Orange Thyroid) Allergy/AdvReac Type Severity Reaction Status Date / Time codeine Allergy Nausea Verified 09/05/25 19:36 Penicillins (PCN) Allergy Rash Verified 09/05/25 19:36 Family History Mother COPD (chronic obstructive pulmonary disease) Venous thromboembolism (VTE) Father Alcoholic cirrhosis Alcohol abuse Surgical History History of dental surgery Social History household members: significant other Smoking Status: Current every day smoker tobacco type: e-cigarettes Electronic Cigarette Use: with nicotine how long ago did patient quit smoking: Smoked cigarettes teen until age 32 y/o 1 ppd->vaping heavy. alcohol intake: never substance use type: does not use ROS ROS Narrative Admission Review of Systems: CONSTITUTIONAL: No weight loss, fever, + chills, weakness or fatigue. HEENT: Eyes: No visual loss, blurred vision, double vision or yellow sclerae. Ears, Nose, Throat: No hearing loss, sneezing, congestion, runny nose or sore throat. SKIN: No rash or itching, lesions, wounds. CARDIOVASCULAR: + Chest pain. No palpitations, edema, orthopnea, syncopal events. RESPIRATORY: + Dyspnea. No cough or sputum, wheezing, hemoptysis. GASTROINTESTINAL: No anorexia, nausea, vomiting or diarrhea, abdominal pain, melena, BRBPR. GENITOURINARY: + Recent dysuria/frequency with UTI diagnosis. No urgency or retention. NEUROLOGICAL: + Confusion. No headache, dizziness, syncope, paralysis, ataxia, numbness or tingling in the extremities, focal weakness, change in bowel or bladder control, seizure. MUSCULOSKELETAL: + muscle, back pain, joint pain or stiffness. HEMATOLOGIC: No anemia, bleeding or bruising. LYMPHATICS: No enlarged nodes. No history of splenectomy. PSYCHIATRIC: No history of depression or anxiety. ENDOCRINOLOGIC: No reports of sweating, cold or heat intolerance. No polyuria or polydipsia. ALLERGIES: No history of asthma, hives, eczema or rhinitis. Vital Signs Vital Signs Vital Signs: 09/05/25 19:34 09/05/25 19:36 09/05/25 20:30 Temperature 97 F L 97 F L Temperature Source Temporal Temporal Pulse Rate 79 79 72 Respiratory Rate 22 H 22 H 23 H Blood Pressure 168/119 H 168/119 H 148/125 H Blood Pressure Mean 135 135 134 Pulse Ox 95 95 93 Oxygen Delivery Method Room Air Room Air 09/05/25 21:00 Temperature 97.6 F L Temperature Source Oral Pulse Rate 73 Respiratory Rate 20 H Blood Pressure 179/87 H Blood Pressure Mean 114 Pulse Ox 92 Oxygen Delivery Method Room Air Weight Weight: 227 lb 3.2 oz Body Mass Index (BMI) 35.6 Physical Exam Narrative Physical Examination: General: Awake, alert, oriented to self, place, significant other/fianc?, does intermittently give information in an incorrect format, does appear confused but remains cooperative, seated upright in ED bed, fatigued appearing. Skin: Normal color, normal turgor, no icterus, no cyanosis except occasional stage ecchymoses, abrasion. HEENT: AT/NC, EOMI, PERRLA, dry, no carotid bruits or JVD noted. Lungs: Diminished, greater bases, proper effort, no rales, ronchi or wheezing. Heart: Regular rate and rhythm; no gallop, rub audible. Abdomen: Soft, obese, NTTP, ND, mildly hyperactive BS, no markedly appreciated HSM. Extremities: No cyanosis, no clubbing, ankle bilateral nonpitting likely chronic edema. Neurological: Patient awake, alert, oriented as noted, cognitive function not baseline intact; pupils equally reactive to light and accommodation, cranial nerves grossly normal, moving all 4 extremities, no focal deficits, strength moderately to severely globally decreased secondary to acute presentation complaints. Psychiatric: Affect appears flat, fatigued, no acute evidence of depressive or anxiety feelings. Results Lab / Micro Data 09/05/25 20:25 09/05/25 20:25 Labs: Laboratory Results - last 24 hr 09/05/25 20:25: WBC 11.3 H, RBC 4.04 L, Hgb 12.0, Hct 36.2 L, MCV 89.6, MCH 29.7, MCHC 33.1, RDW Std Deviation 40.3, RDW Coeff of Christiano 12.2, Plt Count 345, MPV 9.6, Immature Gran % (Auto) 0.300, Neut % (Auto) 70.6 H, Lymph % (Auto) 21.0, Emanuel % (Auto) 6.0, Eos % (Auto) 1.7, Baso % (Auto) 0.4, Absolute Neuts (auto) 8.0 H, Absolute Lymphs (auto) 2.38, Nucleated RBC % 0, Sodium 141, Potassium 2.9 L, Chloride 102, Carbon Dioxide 29.8, Anion Gap 10, BUN 18, Creatinine 1.61 H, Estim Creat Clear Calc 44.72 L, Est GFR (MDRD) Non-Af 36 L, BUN/Creatinine Ratio 11.1, Glucose 139 H, Lactic Acid 1.7, Calcium 14.8 H*, Total Bilirubin 0.36, AST 29, ALT 21, Alkaline Phosphatase 70, Troponin T High Sens 33 H, Total Protein 6.9, Albumin 3.7, Globulin 3.2, Albumin/Globulin Ratio 1.2, Ethyl Alcohol < 10.1 Micro: Microbiology 09/05/25 20:35 Mucosa - Nose SARS-CoV-2, Influenza & RSV (PCR) - Final Imaging Radiology Impression Brain CT 09/05/25 20:14 IMPRESSION: No acute intracranial abnormality. Reading Location: [facility]– [place] Assessment & Plan Assessment/Plan (1) Hypercalcemia: (2) UTI (urinary tract infection): PLAN: Plan The patient is a 60-year-old female w/ PMHx: Hypothyroidism, Hypertension, Obesity, Tobacco use who presents to [facility] ED on 09/05/2025 with confusion ongoing for the last 2 days with then onset of vague nonspecific chest discomfort as well as dyspnea starting the evening prior recently diagnosed with a UTI started on Bactrim with reported potential chills but uncertain prompting eventual ED evaluation. #1. Acute hypercalcemic crisis with Acute Hypercalcemia, Unclear etiology, potential component of thiazide usage, potentially heavy usage of vitamin D/calcium supplementation: Admission calcium 14.8, previous levels to this remotely noted in 2021 normal at 9.2, will admit to PCU, maintain on telemetry monitoring, will continue to aggressively hydrate, will administer subcutaneous calcitonin in addition to administration of IV zolendronic acid x 1 as discussed with pharmacy with continued serial BMP assessments, will continue to monitor electrolytes with correction of potassium, additionally will obtain ionized calcium, obtain vitamin D level (25-(OH)D, 1,25-(OH)2D), PTH, Mag, Phos, UCa levels to further assess, monitor I's and O's and repeat CMP in the AM with further intervention pending repeat level. Patient fianc? will call in with exact supplemental dosing of vitamin D and calcium that patient takes. #2. Hypokalemia: Admission K+ 2.9, magnesium level requested, supplementation given, repeat level in AM. #3. Possible Chronic Kidney Disease Stage III per GFR trending versus DAVID versus Acute Creatine Elevation on CKD component unclear type: Admission BUN/Cr 18/1.61, GFR 36, baseline renal function noted remotely in 2021 0.7-1.0 however it is unclear what her current baseline renal function is, repeat BMP in AM to further elucidate. #4. Indeterminate cardiac enzyme of unclear etiology, suspect related with acute presentation as noted above with vague chest pain discomfort history: Admission troponin initial 33, EKG with no acute evidence of ischemia, will maintain on telemetry to be cautious especially given electrolyte disturbances as noted, will continue to trend cardiac enzymes to be cautious, magnesium level as noted pending, FLP in a.m. Maintain on baby aspirin. #5. Hyperglycemia without diabetic history: Admission glucose 139, hemoglobin A1c requested. #6. Recently reported acute complicated urinary tract infection: UA will be requested as well as urine culture, will transition to IV Rocephin given concerns for worsened status and possible medication failure in addition to hypercalcemia as etiology, hold Bactrim, continue IVFs, monitor I/Os, transition antibiotic therapy as able pending sensitivities and speciation. #7. Hypertension: Continue home regimen including lisinopril, holding hydrochlorothiazide component, PRN hydralazine. #8. Hypothyroidism: Will continue patient thyroid supplementation, TSH pending as noted. #9. Tobacco Abuse: Encouraged cessation, inpatient consultation per RT, NR if desired. #10. Obesity: Weight loss and lifestyle changes encouraged. #11. DVT prophylaxis: Heparin. Charges/Coding Visit Charges Inpatient E&M: 84854 Init Hosp L3
[2025-09-05 22:25] LABS: Color, Urine Yellow (Yellow); Glucose, Dipstick Normal (Normal); Ketone-Dipstick Negative (Negative); Leukocyte Esterase-Dipstick 500 /ul (Negative); Nitrite-Dipstick Positive (Negative); Occult Blood-Urine 25 /ul (Negative); Protein-Dipstick 30 mg/dl (Negative); Specific Gravity, Urine 1.020 (1.002-1.030); Urine Bilirubin Dipstick Negative (Negative)
[2025-09-05 22:38] LABS: Barbiturate Urine NEGATIVE (< 200 ng/mL); Benzodiazepine Urine NEGATIVE (< 200 ng/mL); PCP Urine NEGATIVE (< 25 ng/mL); THC Urine NEGATIVE (< 50 ng/mL)
[2025-09-05 22:39] LABS: Magnesium 1.7 mg/dL (1.5-2.2); PTHIN 11 pg/mL (11-61)
--- OUTSIDE RECORDS SUMMARY | 2025-09-05 22:48 | XMS RPT_ITS | CCD ---
Author Organization [facility] AQUACULTURE PROGRAM DIRECTOR [facility] Allergies Allergy Classification Reported Allergen(s) Allergy Type Date of Onset Reaction(s) Facility (2 sources) Codeine Drug Allergy 04-08-[address] [facility] Work Phone: (2 sources) Penicillins Allergy to substance 04-08-[address] [facility] Work Phone: Medications Current Medications Medication Drug [...] A DAY April 08, 2022 12:00am thyroid ([facility]) 30 mg oral tablet (2 sources) Start: 2 take 1 tablet by mouth once daily Thyroid (Pork) ([place] Thyroid) 30 mg tablet Active 1 TABLET PO DAILY April 08, 2022 12:00am Problems Problem Classification Problem Date Documented Da te Episodic/Chronic Residual codes; unclassified (2 sources) Altered mental status; Translations: [Altered mental status, unspecified] Episodic Results Test Name Value Interpretation Reference Range Facility COVID 19, ANTHONY WC(RT COLLECT )on 04-22-2022 SARS-CoV-2 (COVID-19) RNA ANTHONY+probe Ql (Unsp spec) Detected Normal Not Detect [facility] Comment on above: Result Comment: Norm al [...] recent exposure. Performed By: #### L 3400.2405 ####[facility] [address] [place], [place], [id number] Laboratory - Microbiology an d Antimicrobial susceptibilityon 04-22-2022 SARS-CoV-2 (COVID-19) RNA ANTHONY+probe Ql (Unsp spec) Detected Not Detect [facility] Work Phone: Comment on above: Normal Reference Ran ge: Not DetectedMethod:(RT-PCR) real-time reverse transcriptase PCRLuminex JONNATHAN Instrument*The Food and Drug Administration (FDA) has [...] 12 Lead EKGon 04-08-2022 12 Lead EKG [facility] Cardiovascular Services [address] [place] [address] 12 Lead EKG 04/08/22 1203 MR#: [id number] Acct: [id number] Name: MAICOL ALEXANDER Rep #: [id number] : 1965 56 From: Ron De Paz [...] ECG Confirmed by GABRIELE ANAYA, RON ([id number]), content editor HAYLEY MAC ([id number]) on 04/09/2022 11:08:36 AM Referred By: Julio C Confirmed By:RON DE PAZ MD 04/09/22 1108 Date Ron De Paz MD CC: Dr. Sourav Xie MD; Dr. Kana Chery DO Signed Normal [facility] Absolute lymphocyte counton 04-08-2022 Lymphocytes Auto (Unsp spec) [#/Vol] 2.52 10*3/uL 0.83-4.[address] [facility] Work Phone: Basic Metabolic Profile (BMP )on 04-08-2022 BUN/CRE 11.5 RATIO Normal 10-[address] [facility] Comment on above: Order Comment: 'TROP ' Serial specimen #1, #2 or #3: 1 Performed By: #### L 100.0100, L500.2500, L501.4020 #### [facility] Laboratory [address] [place], [address] CA,Total 9.2 mg/dL Normal 8.5-10.[address] [facility] Comment on above: Order Comment: 'TROP ' Serial specimen #1, #2 or #3: 1 Performed By: #### L 100.0100, L500.2500, L501.4020 #### [facility] Laboratory [address] [place], [address] Chloride [Moles/Vol] 103 mmol/L Normal 98-107 [facility] Comment on above: Order Comment: 'TROP ' Serial specimen #1, #2 or #3: 1 Performed By: #### L 100.0100, L500.2500, L501.4020 #### [facility] Laboratory [address] [place], [address] CO2 [Moles/Vol] 29.0 mmol/L Normal 21.0-32.[address] [facility] Comment on above: Order Comment: 'TROP ' Serial specimen #1, #2 or #3: 1 Performed By: #### L 100.0100, L500.2500, L501.4020 #### [facility] Laboratory [address] [place], [address] Creatinine [Mass/Vol] 0.78 mg/dL Normal 0.55-1.[address] [facility] Comment on above: Order Comment: 'TROP ' Serial specimen #1, #2 or #3: 1 Result Comment: The validity of the calculated GFR GFRAA in patients over 70 years has not been determined. Clinical correlation is essential. Performed By: #### L 100.0100, L500.2500, L501.4020 #### [facility] Laboratory [address] [place], [address] ECRCL 76.45 ml/min Normal [facility] Comment on above: Order Comment: 'TROP ' Serial specimen #1, #2 or #3: 1 Performed By: #### L 100.0100, L500.2500, L501.4020 #### [facility] Laboratory [address] [place], [address] EST GFR - AA 97 mL/min Normal >[address] [facility] Comment on above: Order Comment: 'TROP ' Serial specimen #1, #2 or #3: 1 Result Comment: Afri can Peruvian GFR Calc Performed By: #### L 100.0100, L500.2500, L501.4020 #### [facility] Laboratory [address] [place], [address] GAP 5 Normal 5-[address] [facility] Comment on above: Order Comment: 'TROP ' Serial specimen #1, #2 or #3: 1 Performed By: #### L 100.0100, L500.2500, L501.4020 #### [facility] Laboratory [address] [place], [address] GFR/1.73 sq M.predicted among non-blacks MDRD (S/P/Bld) [Vol rate/Area] 80 mL/min/{1.73_m2} Normal >[address] [facility] Comment on above: Order Comment: 'TROP ' Serial specimen #1, #2 or #3: 1 Result Comment: Non- GFR Calc Performed By: #### L 100.0100, L500.2500, L501.4020 #### [facility] Laboratory [address] [place], [address] Glucose [Mass/Vol] 125 mg/dL High 74-106 [facility] Comment on above: Order Comment: 'TROP ' Serial specimen #1, #2 or #3: 1 Result Comment: Fast ing Glucose result from 100 to 125 mg/dL suggests IMPAIRED HOMEOSTASIS per A.D.A. criteria. Performed By: #### L 100.0100, L500.2500, L501.4020 #### [facility] Laboratory [address] [place], [address] Potassium [Moles/Vol] 3.5 mmol/L Normal 3.5-5.[address] [facility] Comment on above: Order Comment: 'TROP ' Serial specimen #1, #2 or #3: 1 Performed By: #### L 100.0100, L500.2500, L501.4020 #### [facility] Laboratory [address] [place], [address] Sodium [Moles/Vol] 137 mmol/L Normal 136-145 [facility] Comment on above: Order Comment: 'TROP ' Serial specimen #1, #2 or #3: 1 Performed By: #### L 100.0100, L500.2500, L501.4020 #### [facility] Laboratory [address] [place], [address] Urea nitrogen [Mass/Vol] 9 mg/dL Normal 7-[address] [facility] Comment on above: Order Comment: 'TROP ' Serial specimen #1, #2 or #3: 1 Performed By: #### L 100.0100, L500.2500, L501.4020 #### [facility] Laboratory [address] [place], [address] Basophil percentageon -- 2021 Basophils/100 WBC (Bld) 0.3 % 0-[address] [facility] Work Phone: Chloride [Moles/Vol] 103 mmol/L 98-107 [facility] Work Phone: Eosinophils/100 WBC (Bld) 3.7 % 0-[address] [facility] Work Phone: Glucose [Mass/Vol] 125 mg/dL 74-106 [facility] Work Phone: Comment on above: Fasting Glucose resu lt from 100 to 125 mg/dL suggests IMPAIRED HOMEOSTASIS per A.D.A. criteria. Neutrophils (Bld) [#/Vol] 5.8 10*3/uL 2.0-7.[address] [facility] Work Phone: Neutrophils/100 WBC (Bld) 62.5 % 47-[address] [facility] Work Phone: Potassium [Moles/Vol] 3.5 mmol/L 3.5-5.[address] [facility] Work Phone: Sodium [Moles/Vol] 137 mmol/L 136-[address] [facility] Work Phone: WBC (Bld) [#/Vol] 9.3 10*3/uL 4.4-11.[address] [facility] Work Phone: Basophil percentage 0-5 SEEN /hpf 0-[address] [facility] Work Phone: Bilirubin Test strip Ql (U)o n 04-08-2022 Bilirubin Ql (U) Negative Negative [facility] Work Phone: Blood erythrocytes count (nu mber/volume)on 04-08-2022 RBC (Bld) [#/Vol] 4.46 10*6/uL 4.2-5.4 [facility] Work [facility]: Blood hemoglobin measurement (mass/volume)on 04-08-2022 Hemoglobin (Bld) [Mass/Vol] 13.2 g/dL 12.0-15.[address] [facility] Work Phone: Blood lymphocytes/100 leukoc yteson 04-08-2022 Lymphocytes/100 WBC (Bld) 27.1 % 19-[address] [facility] Work Phone: Blood monocytes/100 leukocyt eson 04-08-2022 Monocytes/100 WBC (Bld) 5.9 % 0-[address] [facility] Work Phone: Blood platelet mean volumeon 04-08-2022 Platelet mean volume (Bld) [Entitic vol] 9.3 fL 6.2-12.[address] [facility] Work Phone: Brain without Contraston Brain without Contrast [facility] Imaging Services [address] [place] [address] Brain without Contrast MR#: [id number] Acct: [id number] Name: MAICOL ALEXANDER Rep #: [id number] : 1965 F 56 From: Efren Fernández MD PCP: Dr. Sourav Xie MD Status: REG ER Study: Brain without Contrast Date of Exam: 04/08/22 Exam# [id number] Ordering Dr: Kana Chery DO EXAM: MR HEAD WITHOUT INTRAVENOUS CONTRAST CLINICAL INDICATION: TIA. TECHNIQUE: Multiplanar and multisequence MR images of the brain were obtained without intravenous contrast. This report was created using [employer] report [employer] technology. COMPARISON: CT head without contrast and [...] 15:47 EDT Reading Location ID and State: [facility] / [place] , Service support , CC: Dr. Sourav Xei MD; Dr. Kana Chery DO Casting And Curing Operator: Signed Normal [facility] Brain/Head without Contrasto n 04-08-2022 Brain/Head without Contrast [facility] Imaging Services [address] [place] [address] Brain/Head without Contrast MR#: [id number] Acct: [id number] Name: MAICOL ALEXANDER Rep #: [id number] : 1965 F 56 From: Kosta ortiz MD PCP: Dr. Sourav Xie MD Status: REG ER Study: Brain/Head without Contrast Date of Exam: 03/28 11/19 Exam# [id number] Ordering Dr: Kana Chery DO STUDY: CT [...] 12:32 EDT Reading Location ID and State: [facility] / [place] , Service support , CC: Dr. Sourav Xie MD; Dr. Kana Chery DO Casting And Curing Operator: Signed Normal [facility] CBC W/Diff, Automatedon 03-28 Absolute Lymph 2.52 X10 3/uL Normal 0.83-4.[address] [facility] Comment on above: Performed By: #### L 100.0100, L500.2500, L501.4020 #### [facility] Laboratory [address] [place], [address] Absolute Neut 5.8 X10 3/uL Normal 2.0-7.[address] [facility] Comment on above: Performed By: #### L 100.0100, L500.2500, L501.4020 #### [facility] Laboratory [address] [place], [address] Basophils/100 WBC (Bld) 0.3 % Normal 0-[address] [facility] Comment on above: Performed By: #### L 100.0100, L500.2500, L501.4020 #### [facility] Laboratory [address] [place], [address] Eosinophils/100 WBC (Bld) 3.7 % Normal 0-[address] [facility] Comment on above: Performed By: #### L 100.0100, L500.2500, L501.4020 #### [facility] Laboratory [address] [place], [address] Erythrocyte distribution width (RBC) [Ratio] 12.1 % Normal 11.6-14.[address] [facility] Comment on above: Performed By: #### L 100.0100, L500.2500, L501.4020 #### [facility] Laboratory [address] [place], [address] Hematocrit (Bld) [Volume fraction] 40.8 % Normal 37-[address] [facility] Comment on above: Performed By: #### L 100.0100, L500.2500, L501.4020 #### [facility] Laboratory [address] [place], [address] Hemoglobin (Bld) [Mass/Vol] 13.2 g/dL Normal 12.0-15.[address] [facility] Comment on above: Performed By: #### L 100.0100, L500.2500, L501.4020 #### [facility] Laboratory [address] [place], [address] IG% 0.500 Normal 0.0-0.[address] [facility] Comment on above: Result Comment: IG% - Immature Granulocytes (promyelocytes, myelocytes and metamyelocytes) > 1% indicates that a LEFT SHIFT is Present. Performed By: #### L 100.0100, L500.2500, L501.4020 #### [facility] Laboratory [address] [place], [address] Lymphocytes/100 WBC (Bld) 27.1 % Normal 19-[address] [facility] Comment on above: Performed By: #### L 100.0100, L500.2500, L501.4020 #### [facility] Laboratory [address] [place], [address] MCH (RBC) [Entitic mass] 29.6 pg Normal 27.0-32.[address] [facility] Comment on above: Performed By: #### L 100.0100, L500.2500, L501.4020 #### [facility] Laboratory [address] [place], [address] MCHC (RBC) [Mass/Vol] 32.4 g/dL Normal 32-[address] [facility] Comment on above: Performed By: #### L 100.0100, L500.2500, L501.4020 #### [facility] Laboratory [address] [place], [address] MCV (RBC) [Entitic vol] 91.5 fL Normal 81-[address] [facility] Comment on above: Performed By: #### L 100.0100, L500.2500, L501.4020 #### [facility] Laboratory [address] [place], [address] Monocytes/100 WBC (Bld) 5.9 % Normal 0-[address] [facility] Comment on above: Performed By: #### L 100.0100, L500.2500, L501.4020 #### [facility] Laboratory [address] [place], [address] Neutrophils/100 WBC (Bld) 62.5 % Normal 47-[address] [facility] Comment on above: Performed By: #### L 100.0100, L500.2500, L501.4020 #### [facility] Laboratory [address] [place], [address] Nucleated RBC (Bld) [#/Vol] 0 10*3/uL Normal 0-[address] [facility] Comment on above: Performed By: #### L 100.0100, L500.2500, L501.4020 #### [facility] Laboratory [address] [place], [address] Platelet mean volume (Bld) [Entitic vol] 9.3 fL Normal 6.2-12.[address] [facility] Comment on above: Performed By: #### L 100.0100, L500.2500, L501.4020 #### [facility] Laboratory [address] [place], [address] Platelets (Bld) [#/Vol] 388 10*3/uL Normal 150-[address] [facility] Comment on above: Performed By: #### L 100.0100, L500.2500, L501.4020 #### [facility] Laboratory [address] [place], [address] RBC (Bld) [#/Vol] 4.46 10*6/uL Normal 4.2-5.4 [facility] Comment on above: Performed By: #### L 100.0100, L500.2500, L501.4020 #### [facility] Laboratory [address] [place], [address] RDW SD 40.5 fl Normal 35.1-43.[address] [facility] Comment on above: Performed By: #### L 100.0100, L500.2500, L501.4020 #### [facility] Laboratory [address] [place], [address] WBC (Bld) [#/Vol] 9.3 10*3/uL Normal 4.4-11.0 [facility] Comment on above: Performed By: #### L 100.0100, L500.2500, L501.4020 #### [facility] Laboratory [address] [place], [address] CTA Head AND Neck W/ Contras ton 04-08-2022 CTA Head AND Neck W/ Contrast [facility] Imaging Services [address] [place] [address] CTA Head AND Neck W/ Contrast MR#: [id number] Acct: [id number] Name: MAICOL ALEXANDER Rep #: [id number] : 1965 F 56 From: Kosta ortiz MD PCP: Dr. Sourav Xie MD Status: REG ER Study: CTA Head AND Neck W/ Contrast Date of Exam: Exam# [id number] Ordering Dr: Kana Chery DO STUDY: CTA [...] There is no demonstrated aneurysm of the jamul of [place]. AORTIC ARCH: There is atherosclerotic [...] Sourav Xie MD; Dr. Kana Chery DO Casting And Curing Operator: Signed Normal [facility] Chest 1 View (Portable)on Chest 1 View (Portable) [facility] Imaging Services [address] [place] [address] Chest 1 View (Portable) MR#: [id number] Acct: [id number] Name: MAICOL ALEXANDER Rep #: [id number] : 1965 F 56 From: Kosta ortiz MD PCP: Dr. Sourav Xie MD Status: REG ER Study: Chest 1 View (Portable) Date of Exam: 04/08/22 Exam# [id number] Ordering Dr: Kana Chery DO STUDY: X-RAY [...] at 12:46 EDT , CC: Dr. Sourav Xei MD; Dr. Kana Chery DO Casting And Curing Operator: Signed Normal [facility] Determination of erythrocyte mean corpuscular volume (MCV)on 04-08-2022 MCV (RBC) [Entitic vol] 91.5 fL 81-[address] [facility] Work Phone: Emergency Department Summary on 04-08-2022 Emergency Department Summary [facility] Medical Records Department [address] [place] [address] Emergency Department Summary 04/08/22 MR#: [id number] Acct: [id number] Name: MAICOL ALEXANDER Rep #: [id number] : 1965 56 From: Kana Chery DO [...] Taken Unknown] thyroid (pork) 30 mg tablet ([place] Thyroid) 1 tab PO DAILY 04/08/22 [History [...] Chest Wall (more content not included)... Normal [facility] Hematocrit Auto (Bld) [Volum e fraction]on 04-08-2022 Hematocrit (Bld) [Volume fraction] 40.8 % 37-[address] [facility] Work Phone: Ketones Test strip Ql (U)on 04-08-2022 Ketones Ql (U) Negative Negative [facility] Work Phone: [id number] 04-08-2022 TROPONIN-I HS 6 pg/mL Normal 3.0-54.[address] [facility] Comment on above: Order Comment: 'TROP ' Serial specimen #1, #2 or #3: 1 Result Comment: Plea se Note: New Test Units and Gender Specific Reference Ranges. For more information see Policy Stat Procedure [place] High Sensitivity Troponin (TNIH) and attachments. Performed By: #### L 100.0100, L500.2500, L501.4020 #### [facility] Laboratory [address] [place], [place], [address] Laboratory - Chemistry and C hemistry - challengeon 04-08-2022 CO2 [Moles/Vol] 29.0 mmol/L 21.0-32.[address] [facility] Work Phone: Urea nitrogen/Creatinine [Mass ratio] 11.5 mg/mg 10-[address] [facility] Work Phone: Laboratory - Hematology and Cell countson 04-08-2022 Erythrocyte distribution width (RBC) [Entitic vol] 40.5 fL 35.1-43.[address] [facility] Work Phone: Erythrocyte distribution width (RBC) [Ratio] 12.1 % 11.6-14.[address] [facility] Work Phone: Immature granulocytes/100 WBC (Bld) 0.500 % 0.0-0.[address] [facility] Work Phone: Comment on above: IG% - Immature Granu locytes (promyelocytes, myelocytes and metamyelocytes) > 1% indicates that a LEFT SHIFT is Present. MCH (RBC) [Entitic mass] 29.6 pg 27.0-32.[address] [facility] Work Phone: Nucleated RBC/100 WBC (Bld) [Ratio] 0 % 0-[address] [facility] Work Phone: MCHC Auto (RBC) [Mass/Vol]on 04-08-2022 MCHC (RBC) [Mass/Vol] 32.4 g/dL 32-[address] [facility] Work Phone: Mucus LM Ql (Urine sed)on Mucus Ql (Urine sed) 0 SEEN /hpf [facility] Work Phone: Nitrite Test strip Ql (U)on 04-08-2022 Nitrite Ql (U) Negative Negative [facility] Work Phone: No Panel Informationon 04-08 Estimated Creatinine Clearance Calc 76.45 ml/min [facility] Work Phone: Estimated GFR (MDRD) Amer 97 mL/min >[address] [facility] Work Phone: Comment on above: GFR Calc Estimated GFR (MDRD) Non-Af Amer 80 mL/min >[address] [facility] Work Phone: Comment on above: Non- GFR Calc Troponin I High Sensitivity 6 pg/mL 3.0-54.[address] [facility] Work Phone: Comment on above: Please Note: New Ruby t Units and Gender Specific Reference Ranges. For more information see Policy Stat Procedure [place] High Sensitivity Troponin (TNIH) and attachments. Platelets bldon 04-08-2022 Platelets (Bld) [#/Vol] 388 10*3/uL 150-[address] [facility] Work Phone: Protein Test strip Ql (U)on 04-08-2022 Protein Ql (U) Negative Negative [facility] Work Phone: Serum or plasma calcium celia urement (mass/volume)on 04-08-2022 Calcium [Mass/Vol] 9.2 mg/dL 8.5-10.1 [facility] Work Phone: Serum or plasma creatinine m easurement (mass/volume)on 04-08-2022 Creatinine [Mass/Vol] 0.78 mg/dL 0.55-1.[address] [facility] Work Phone: Comment on above: The validity of the calculated GFR & GFRAA in patients over 70 years has not been determined. Clinical correlation is essential. Serum or plasma urea nitroge n measurement (mass/volume)on 04-08-2022 Urea nitrogen [Mass/Vol] 9 mg/dL 7-[address] [facility] Work Phone: Squamous epithelial cells de tection in urine sediment by light microscopyon 04-08-2022 Epithelial cells.squamous LM Ql (Urine sed) 0-5 SEEN /hpf 5-[address] [facility] Work Phone: Thin prep Papanicolaou smear with manual screeningon 04-08-2022 Thin prep Papanicolaou smear with manual screening 5 5-[address] [facility] Work Phone: Urinalysis, Completeon 04-08 BACTERIA 1+ /hpf Normal None Seen [facility] Comment on above: Order Comment: CLEAN CATCH Performed By: #### L 400.0001 #### [facility] Laboratory [address] [place], [address] WBC 0-5 SEEN Normal 0-[address] [facility] Comment on above: Order Comment: CLEAN CATCH Performed By: #### L 400.0001 #### [facility] Laboratory [address] [place], [address] EPI,SQUAMOUS 0-5 SEEN Normal 5-[address] [facility] Comment on above: Order Comment: CLEAN CATCH Performed By: #### L 400.0001 #### [facility] Laboratory [address] [place], [place], [id number] RBC 0-5 SEEN Normal 0-[address] [facility] Comment on above: Order Comment: CLEAN CATCH Performed By: #### L 400.0001 #### [facility] Laboratory [address] [place], [address] Mucus Ql (Urine sed) 0 SEEN Normal [facility] Comment on above: Order Comment: CLEAN CATCH Performed By: #### L 400.0001 #### [facility] Laboratory [address] [place], [place], [id number] [phone] Urine blood detectionon 03-28 RBC Ql (U) 10 /ul Negative [facility] Work Phone: RBC Ql (U) 0-5 SEEN /hpf 0-[address] [facility] Work Phone: Urine clarityon 04-08-2022 Clarity (U) Sl. Cloudy Clear [facility] Work Phone: Urine color determinationon 04-08-2022 Color (U) Yellow Yellow [facility] Work Phone: Urine glucose detectionon Glucose Ql (U) Normal mg/dl Normal [facility] Work Phone: Urine leukocyte esterase det ection by dipstickon 04-08-2022 Leukocyte esterase Test strip Ql (U) 25 /ul Negative [facility] Work Phone: Urine pHon 04-08-2022 pH (U) 7.0 [pH] 5.0 - 8.[address] [facility] Work Phone: Urine sediment bacteria coun t by microscopy (number/high power field)on 04-08-2022 Bacteria LM.HPF (Urine sed) [#/Area] 1 /[HPF] None Seen [facility] Work Phone: Urine specific gravity measu rementon 04-08-2022 Specific gravity (U) [Rel density] 1.010 1.002-1.[address] [facility] Work Phone: Urobilinogen Auto test strip Ql (U)on 04-08-2022 Urobilinogen Ql (U) Normal mg/dl Normal [facility] Work Phone: Vital Signs Date Time Vital Sign Value Performing Clinician Madina lang 04-08-2022 16:35-0400 Diastolic blood pressure 78 mm[Hg] [facility] Work Phone: 04-08-2022 16:35-0400 Heart rate 74 /min [facility] Work Phone: 04-08-2022 16:35-0400 Respiratory rate 16 /min [facility] Work Phone: 04-08-2022 16:35-0400 SaO2% (BldA) [Mass fraction] 98 % [facility] Work Phone: 04-08-2022 16:35-0400 Systolic blood pressure 121 mm[Hg] [facility] Work Phone: 04-08-2022 11:27-0400 Body height 170.18 cm [facility] Work Phone: 04-08-2022 11:27-0400 Body mass index (BMI) [Ratio] 36 kg/m2 [facility] Work Phone: 04-08-2022 11:27-0400 Body temperature 97.6 [degF] [facility] Work Phone: 04-08-2022 11:27-0400 Body weight 104.32 kg [facility] Work Phone: Encounters Encounter Date Encounter Type Care Provider Facility Start: 04-22-2022 End: 04-22-2022 Patient encounter procedure [facility], Specimen Start: 04-08-2022 End: 04-08-2022 Emergency department patient visit [facility]Emergency Department Procedures Date Procedure Procedure Detail Performing Clinician Start: 04-08-2022 MRI of brain without contrast Start: 04-08-2022 CT angiography of he ad and neck Start: 04-08-2022 CT of head without contrast Start: 04-08-2022 Plain chest X-ray Plan of Treatment Date Care Activity Detail Author Patient Education ED ALOC [facility] Work Phone: Patient referral [facility] Work Phone: Payers Date Payer Category Payer Policy ID Self-pay SELF PAY INSURANCE [id number] Unknown SELF PAY INSURANCE [id number] Social History Date Type Detail Facility Start: 04-08-2022 Tobacco smoking stat us [facility] Unknown if ever smoked [facility] Work Phone: Start: 1965 Sex Assigned At Female W [facility] Work Phone: Evaluation note Note Date & Type Note Facility Evaluation note No assessment information availa ble [facility] Work Phone: Hospital Discharge instructions Note Date & Type Note Facility Hospital Discharge instructions Additional Instructions Your work-up today was basically normal. Follow-up with your primary care physician if not improving. Return if worse. [facility] Work Phone: Hospital Discharge instructions Note Date & Type Note Facility Hospital Discharge instructions [facility] Work Phone: Chief Complaint and Reason for Visit Chief Complaint confusion, near sync ope Advance Directives No Advanced Directives Records Found Advance Directive Response Recorded Date/ Time Living Will No April 08, 2022 11:41am Power of Thermograph Operator No April 08 11:41am Summary Purpose Family History No Family History Records Found Additional Source Comments Goals (unrecognized section and content) Goals may be documented in a n alternate section INFORMATION SOURCE (unrecogn ized section and content) DATE CREATED AUTHOR 05/05/2022 [facility] FOR RECORDS PERTAINING TO PATIENTS WHO [...] BE BASED ON THE PRIMARY CLINICAL RECORDS. [facility]. provides no warranty or guarantee of the accuracy or completeness of information in this document.
[2025-09-05 22:58] LABS: Red Blood Cells-Urine 0-5 SEEN /hpf (0-5); Squamous Epithelial Cells - UA 5-10 SEEN /hpf (5-10)
[2025-09-05 23:19] LABS: Troponin T High Sens 2 HR 35 ng/L (<=14)
--- NOTE | 2025-09-05 23:46 | EX.ED.DYSGE1 ---
HPI History of Present Illness Chief Complaint: Confusion Narrative Narrative: Patient is a 60-year-old female presenting to the emergency department for 3 to 4 days of increasing confusion. Patient has a past medical history of hypertension, obesity, tobacco use and hypothyroidism. Arrives with significant other here at bedside. Yesterday she had an episode of midsternal chest pain and shortness of breath that lasted about 20 minutes when she laid down to take a nap. States that she has not had any of the symptoms today. Fianc? states that she has been more confused and not acting herself. She states that she has been urinating more frequently and has had some urgency. States that she did have a UTI about a month ago. She denies any headache, vision changes, focal numbness or weakness. Denies any abdominal pain, nausea, vomiting, diarrhea or dysuria or hematuria. Denies fever or chills. PFSH [facility] Medical History Obesity Tobacco use Hypothyroid HTN (hypertension) Home Medications ?Medication ?Instructions ?Recorded ?Last Taken ?Type lisinopril 20 1 tab PO DAILY 04/08/22 Unknown History mg-hydrochlorothiazide 12.5 mg tablet thyroid (pork) 30 mg tablet 1 tab PO DAILY 04/08/22 Unknown History ([place] Thyroid) Allergy/AdvReac Type Severity Reaction Status Date / Time codeine Allergy Nausea Verified 09/05/25 19:36 Penicillins (PCN) Allergy Rash Verified 09/05/25 19:36 Family History Mother COPD (chronic obstructive pulmonary disease) Venous thromboembolism (VTE) Father Alcoholic cirrhosis Alcohol abuse Surgical History History of dental surgery Social History household members: significant other Smoking Status: Current every day smoker tobacco type: e-cigarettes Electronic Cigarette Use: with nicotine how long ago did patient quit smoking: Smoked cigarettes teen until age 32 y/o 1 ppd->vaping heavy. alcohol intake: never substance use type: does not use ROS ROS ED ROS Narrative see HPI EXAM Physical Exam Narrative Exam Narrative: Vital signs: Reviewed General: Alert and oriented x 3. No acute distress. Nontoxic. HEENT: Head is normocephalic and atraumatic, sinuses nontender, pupils equal round and reactive. Extraocular movements intact. Nares are patent. Oropharynx and throat exams normal. Neck: Supple without lymphadenopathy nontender Cardiovascular: Regular rate and rhythm, no murmurs. No rubs or gallops. Normal S1 and S2 Respiratory: Clear to auscultation bilaterally. No wheezes, rales, rhonchi Abdominal: Soft and nontender. Normal bowel sounds. No guarding or rebound. Nonsurgical abdomen Extremities: No tenderness. No bruising. Normal range of motion. Normal sensation. Skin: No rash or redness. Neurological: Cranial nerves II through XII are grossly intact. Normal strength and sensation. Normal cerebellar function. Frequent repeating of statements. The rest of the physical exam is unremarkable Const Vital Signs: 09/05/25 19:34 09/05/25 19:36 09/05/25 20:30 Temperature 97 F L 97 F L Temperature Source Temporal Temporal Pulse Rate 79 79 72 Respiratory Rate 22 H 22 H 23 H Blood Pressure 168/119 H 168/119 H 148/125 H Blood Pressure Mean 135 135 134 Pulse Ox 95 95 93 Oxygen Delivery Method Room Air Room Air 09/05/25 21:00 09/05/25 22:00 Temperature 97.6 F L 97.4 F L Temperature Source Oral Oral Pulse Rate 73 76 Respiratory Rate 20 H 20 H Blood Pressure 179/87 H 149/118 H Blood Pressure Mean 114 128 Pulse Ox 92 94 Oxygen Delivery Method Room Air Room Air MDM MDM MDM Narrative Medical decision making narrative: Patient is a 60-year-old female presenting to the emergency department for chest pain, shortness of breath and confusion. Patient was seen and examined. Vitals are stable. She is mildly hypertensive at 168/119 on arrival. She is afebrile. Differential includes but is not limited to: Pneumonia, ACS, UTI, viral illness, electrolyte imbalance, less likely PE with no tachycardia, no hypoxia, no significant risk factors. Less likely stroke given the patient is neurologically intact. No focal deficits. CBC with WBC of 11.3 and a normal hemoglobin of 12.0. CMP with mild hypokalemia 2.9 and mild DAVID with creatinine of 1.61. Glucose of 139. Lactate within normal limits. Hypercalcemia of 14.8. Will add on magnesium, phosphorus and PTH. Fluid bolus started. This is likely the cause of her mild confusion. Troponin mildly elevated at 33, reflex at 35, no significant delta change. EKG shows normal sinus rhythm at a rate of 79, nonspecific T wave abnormalities, no ST elevation or depression consistent with STEMI. No dysrhythmia. Urinalysis does have evidence of infection, Rocephin given. CT of the brain shows no acute intracranial abnormalities. Chest x-ray reviewed by myself, no opacity, pneumothorax or wide mediastinum, radiology read is not back at time of admission. I discussed the findings with patient and at bedside. I did recommend admission for further workup in terms of her hypercalcemia and continued altered mental status. Admitted to hospitalist, Dr. Bello. Clinical impression UTI Hypercalcemia Altered mental status History & Record Review Discussion w/independent historian: Patient and Family Lab Data Attestation: I reviewed the patient's lab results. Labs: Laboratory Results - last 24 hr 09/05/25 09/05/25 20:25 22:15 WBC 11.3 H RBC 4.04 L Hgb 12.0 Hct 36.2 L MCV 89.6 MCH 29.7 MCHC 33.1 RDW Std Deviation 40.3 RDW Coeff of Christiano 12.2 Plt Count 345 MPV 9.6 Immature Gran % (Auto) 0.300 Neut % (Auto) 70.6 H Lymph % (Auto) 21.0 Brantley % (Auto) 6.0 Eos % (Auto) 1.7 Baso % (Auto) 0.4 Absolute Neuts (auto) 8.0 H Absolute Lymphs (auto) 2.38 Nucleated RBC % 0 Sodium 141 Potassium 2.9 L Chloride 102 Carbon Dioxide 29.8 Anion Gap 10 BUN 18 Creatinine 1.61 H Estim Creat Clear Calc 44.72 L Est GFR (MDRD) Non-Af 36 L BUN/Creatinine Ratio 11.1 Glucose 139 H Lactic Acid 1.7 Calcium 14.8 H* Phosphorus 3.1 Magnesium 1.7 Total Bilirubin 0.36 AST 29 ALT 21 Alkaline Phosphatase 70 Troponin T High Sens 33 H Total Protein 6.9 Albumin 3.7 Globulin 3.2 Albumin/Globulin Ratio 1.2 PTH Intact 11 Urine Color Yellow Urine Clarity Sl. Cloudy Urine pH 6.0 Ur Specific [place] 1.020 Urine Protein 30 H Urine Glucose (UA) Normal Urine Ketones Negative Urine Occult Blood 25 H Urine Nitrite Positive H Urine Bilirubin Negative Urine Urobilinogen Normal Ur Leukocyte Esterase 500 H Urine RBC 0-5 SEEN Urine WBC 50-100 SEEN Ur Squamous Epith Cells 5-10 SEEN Urine Bacteria 3+ Urine Mucus 0 SEEN Urine Opiates Screen NEGATIVE U Buprenorphine Qual NEGATIVE Ur Oxycodone Screen NEGATIVE Urine Methadone Screen NEGATIVE Urine Fentanyl Screen NEGATIVE Ur Barbiturates Screen NEGATIVE Ur Phencyclidine Scrn NEGATIVE Ur Amphetamines Screen NEGATIVE U Benzodiazepines Scrn NEGATIVE Urine Cocaine Screen NEGATIVE U Cannabinoids Screen NEGATIVE Ethyl Alcohol < 10.1 Radiography Chest X-Ray - ED: 2 View, Read by ED Physician, Normal, No Acute Disease and No Infiltrates Diagnostic Testing: Clinical Impression(s) from Imaging Studies Brain CT 09/05/25 20:14 IMPRESSION: No acute intracranial abnormality. Reading Location: [id number] Discharge Plan Disposition Disposition: Acute Care Hospital [facility] Discharge Date/Time: 09/05/25 23:00
[2025-09-05] MEDS: 0.9% Normal Saline (1000mL) 1,000 ML 999 ML IV (23:55)
[2025-09-06] MEDS: Potassium Chloride Oral Tablet 20 MEQ 40 MEQ PO ×2 (00:24→19:58)
[2025-09-06 00:27] LABS: Ionized Calcium Order ORDER TUBE
[2025-09-06 00:55] LABS: PTHIN 10 pg/mL (11-61); Troponin T High Sens 4 HR 30 ng/L (<=14)
[2025-09-06] MEDS: Pamidronate Disodium 90 MG in 0.9% Normal Saline (1000mL) 1,000 ML 250 MG IV (01:02)
[2025-09-06 01:14] LABS: Vitamin D,25 Hydroxy 73.6 ng/mL (30-100)
[2025-09-06 01:21] LABS: Anion Gap 9 (5-15); BUN 18 mg/dL (4-19); BUN/Creat Ratio 11.7 RATIO (10-20); Calcium,Total 13.2 mg/dL (7.6-11.0); Carbon Dioxide 28.0 mmol/L (21.0-32.0); Chloride 105 mmol/L (98-108); Estimated Creatinine Clearance 49.98 ml/min (50-250); Glucose 103 mg/dL (70-99); Potassium 2.9 mmol/L (3.3-5.1)
[2025-09-06 03:43] VITALS: BP 176/87; PULSE 68; RESP 18; TEMP 36.7; O2SAT 98
[2025-09-06 03:48] LABS: Anion Gap 9 (5-15); BUN 17 mg/dL (4-19); BUN/Creat Ratio 11.9 RATIO (10-20); Calcium,Total 12.7 mg/dL (7.6-11.0); Carbon Dioxide 27.1 mmol/L (21.0-32.0); Chloride 109 mmol/L (98-108); Estimated Creatinine Clearance 53.58 ml/min (50-250); Glucose 104 mg/dL (70-99); Potassium 2.7 mmol/L (3.3-5.1)
[2025-09-06] MEDS: Potassium Chloride Oral Tablet 20 MEQ 60 MEQ PO (05:01)
[2025-09-06] MEDS: 0.9% Normal Saline (1000mL) 1,000 ML 150 ML IV ×2 (05:27→11:27)
[2025-09-06 05:59] LABS: Hematocrit 32.5 % (37-47); Hemoglobin 10.7 g/dL (12.0-15.0); Immature Granulocytes Count 0.040 X10^3/uL (0.0-0.0); Mean Corp Hgb Conc 32.9 g/dL (32-36); Mean Corpuscular Volume 89.5 fL (81-99); Mean Platelet Vol. 9.5 fl (6.2-12.0); NRBC Flagged by Analyzer 0 % (0-5); Platelet Count 297 K/mm3 (150-450); RBC Distribution Width CV 12.1 % (11.6-14.6); RBC Distribution Width SD 39.7 fl (35.1-43.9); Red Blood Count 3.63 M/mm3 (4.2-5.4); White Blood Count 10.9 K/mm3 (4.4-11.0)
[2025-09-06 06:00] VITALS: BMI 33.8
[2025-09-06 06:36] LABS: AST(SGOT) 24 U/L (<=31); Alanine Aminotransfer ALT/SGPT 18 U/L (<=34); Albumin, Serum 3.4 g/dL (3.4-4.8); Alkaline Phosphatase 62 U/L (35-104); Anion Gap 10 (5-15); BUN 15 mg/dL (4-19); BUN/Creat Ratio 11.6 RATIO (10-20); Calcium,Total 12.1 mg/dL (7.6-11.0); Carbon Dioxide 25.5 mmol/L (21.0-32.0); Chloride 108 mmol/L (98-108); Estimated Creatinine Clearance 57.29 ml/min (50-250); Globulin 2.7 g/dL (2.2-4.2); Glucose 110 mg/dL (70-99); Potassium 3.3 mmol/L (3.3-5.1)
[2025-09-06 09:06] VITALS: BP 158/83; PULSE 91; RESP 16; TEMP 37; O2SAT 94
[2025-09-06] MEDS: Nicotine (PBKC) 21 MG Patch TD (09:08)
[2025-09-06] MEDS: Heparin Injection (Vial) 5,000 UNIT/ML VIAL 5000 UNIT SC ×2 (09:09→22:27)
[2025-09-06] MEDS: FLU VACCINE 2025-26(6MOS UP) 45 MCG/0.5 ML SYRINGE IM (09:19)
[2025-09-06] MEDS: 0.9% Saline Lock 10 ML Syringe IV ×2 (09:37→22:41)
--- NOTE | 2025-09-06 12:00 | CASEMGMT ---
RN?CM?HYDROGRAPHER?CM?to room to meet with patient for initial transition planning/care coordination?assessment.?RN?CM?introduced self and role at [facility].? Pt voices understanding and consents to?assessment?at this time.? Pt resting in bed in no distress at this time.? Pt is A/O but noted w/some confusion & having difficulty recalling a lot of the information and difficulty w/answering some questions. Significant other, Jonathan, @ bedside and provided most of the following information. Care providers, pharmacy, and demographics verified/updated at this time. Strata: 1 PCP: No PCP. Provided w/[facility] info. Specialists: None Insurance: None. Jonathan states, Clementina, from [employer], has been in to talk w/them. Prescription Benefit:?none Living Will/HPOA:?Pt does not currently have LW/HCPOA. Jonathan interested in more information & pt states she is interested in completing HCPOA. Made aware, d/t pt's confusion, this cannot be completed at this time. Also made aware, if pt oriented/thinking clear prior to discharge and if she still desires to complete them, this can be done w/SW, if she is available. Also made aware this can be completed as an OP, if desired, as long as pt is oriented and no longer confused. LNOK: Significant other/fiance, Jonathan, is the only contact listed. He states they are supposed to be getting on Wednesday 09/12. Per Jonathan and pt, pt has 3 daughters, Mary (lives in [facility]), Pema (lives in [place]), and Ashley (lives in [place]). They state pt is the closest to Mary. She only talks w/Pema on special occasions. She has not spoken w/Ashley for years. Living Arrangements: Pt and Jonathan live together in 2-story home w/7-8 steps to enter. [facility]. Per Jonathan, up until about 3 days ago, pt was independent w/ADL's and IADL's. He works from 2:30 AM to 2:30 PM and pt is home during that time alone. He states about 3 days ago, she started getting confused and unsteady. He has had to assist her w/walking and getting to the bathroom and w/drinking, stating she has been so shaky that she is unable to hold a glass in her hand. She is able to use a straw. He states he took off of work yesterday and today. He plans to take off of work when pt discharges back home, if needed, to assist her/take care of her until she is able to be home alone again. He is interested in [employer] list so he can hire someone to stop in and check on her once he returns to work if needed. List provided at this time. Transportation:?Pt is able to drive, but only drives locally, stating she just drove a couple weeks ago. Jonathan usually provides the transportation & will continue to do so until pt is able again. DME: ?Pt does not have any DME @ home. She has used a walking stick in the past but has not used that for a couple years. Pt is currently using a WW in room. They do not have a walker. Jonathan states if pt needs a walker @ ri, he would be able to afford to pay for it [id number]. He was made aware [employer] is affiliated /[facility] and states to get it from [employer]. HHC/SNF: No hx of either. He declines wanting any HHC set up, as it would be private-pay. Jonathan wishes for pt to return home and states has no further concerns with her going home at time of discharge. CM?to follow for any further discharge planning/needs.? Jonathan and pt voice no further concerns/needs at this time.? PLAN:??Home with significant other, Jonathan. Follow for possible WW @ dc. PT/OT evals pending. Mona BARDALESN?RN?CM
[2025-09-06 15:31] VITALS: BP 153/82; PULSE 81; RESP 16; TEMP 36.3; O2SAT 95
--- NOTE | 2025-09-06 16:12 | CHAPLAIN ---
Type of Pastoral Visit _x__ Initial Visit ___ Follow-up Visit ___ On-call Visit ___ General Patient Visit ___ Spiritual Assessment ___ Family Conference ___ Bereavement ___ Rapid Response ___ Code Blue ___ Other (describe below) Pastoral Care Referral From _x__ Patient ___ Family ___ Nurse ___ Physician ___ Press Supervisor ___ Architecture Professor ___ Other (describe below) Sacrament/Intervention _x__ Active listening ___ Anointing ___ Advent ___ Bereavement ___ Communion ___ Gema exploration ___ _x__ Life review ___ Prayer ___ Reconciliation ___ Sacrament of Sick _x__ Supportive presence ___ Wedding ___ Other (describe below) Pastoral Comments patient and SO are in the room; SO does much of the talking and explanation of situation; both claim that this came out of nowhere and the need for answers to address the issues; SO says that [place] and is worried if she can be well enough for that; SO talks and asks questions about the social culture in this area as we have never lived in an environment like this; pt has some difficulty getting her words expressed at times in the conversation; DR came into room at this time and the visit ended
--- NOTE | 2025-09-06 18:37 | PCM.PN.HOSP ---
Reason for Visit Chief Complaint: Confused, ? Chills, recent UTI dx. Subjective Subjective Patient was seen and examined today, I briefly talked with her today. Patient's calcium is improved, patient had some periods of second-degree heart block, this appears to be resolved at this time. Patient is asymptomatic. Repeat labs are pending at this time. I ordered a serum immunoelectrophoresis on the patient to rule out myeloma. Objective Data Objective Data Vital Signs: Vital Signs Temp Pulse Resp BP Pulse Ox O2 Del Method 97.4 F L 81 16 153/82 H 95 Room Air 09/06/25 15:31 09/06/25 15:31 09/06/25 15:31 09/06/25 15:31 09/06/25 15:31 09/06/25 15:31 Oxygen Delivery Method Room Air Weight: 104 kg Body Mass Index (BMI) 33.8 Intake & Output: Intake and Output for Last 24 Hours 09/04/25 09/05/25 09/06/25 23:59 23:59 23:59 Intake Total 1050 / 1050 4062.5 / 4062.5 Output Total 0 / 0 Balance 1050 / 1050 4062.5 / 4062.5 Lab / Micro Data 09/06/25 05:45 09/07/25 05:56 Labs: Laboratory Results - last 24 hr 09/05/25 20:25: WBC 11.3 H, RBC 4.04 L, Hgb 12.0, Hct 36.2 L, MCV 89.6, MCH 29.7, MCHC 33.1, RDW Std Deviation 40.3, RDW Coeff of Christiano 12.2, Plt Count 345, MPV 9.6, Immature Gran % (Auto) 0.300, Neut % (Auto) 70.6 H, Lymph % (Auto) 21.0, Dane % (Auto) 6.0, Eos % (Auto) 1.7, Baso % (Auto) 0.4, Absolute Neuts (auto) 8.0 H, Absolute Lymphs (auto) 2.38, Nucleated RBC % 0, Sodium 141, Potassium 2.9 L, Chloride 102, Carbon Dioxide 29.8, Anion Gap 10, BUN 18, Creatinine 1.61 H, Estim Creat Clear Calc 44.72 L, Est GFR (MDRD) Non-Af 36 L, BUN/Creatinine Ratio 11.1, Glucose 139 H, Lactic Acid 1.7, Calcium 14.8 H*, Phosphorus 3.1, Magnesium 1.7, Total Bilirubin 0.36, AST 29, ALT 21, Alkaline Phosphatase 70, Troponin T High Sens 33 H, Total Protein 6.9, Albumin 3.7, Globulin 3.2, Albumin/Globulin Ratio 1.2, PTH Intact 11, Ethyl Alcohol < 10.1 09/05/25 22:15: Urine Color Yellow, Urine Clarity Sl. Cloudy, Urine pH 6.0, Ur Specific [place] 1.020, Urine Protein 30 H, Urine Glucose (UA) Normal, Urine Ketones Negative, Urine Occult Blood 25 H, Urine Nitrite Positive H, Urine Bilirubin Negative, Urine Urobilinogen Normal, Ur Leukocyte Esterase 500 H, Urine RBC 0-5 SEEN, Urine WBC 50-100 SEEN, Ur Squamous Epith Cells 5-10 SEEN, Urine Bacteria 3+, Urine Mucus 0 SEEN, Urine Opiates Screen NEGATIVE, U Buprenorphine Qual NEGATIVE, Ur Oxycodone Screen NEGATIVE, Urine Methadone Screen NEGATIVE, Urine Fentanyl Screen NEGATIVE, Ur Barbiturates Screen NEGATIVE, Ur Phencyclidine Scrn NEGATIVE, Ur Amphetamines Screen NEGATIVE, U Benzodiazepines Scrn NEGATIVE, Urine Cocaine Screen NEGATIVE, U Cannabinoids Screen NEGATIVE 09/05/25 22:27: Troponin T Hi Sens 2 Hr 35 H 09/06/25 00:12: Sodium 142, Potassium 2.9 L, Chloride 105, Carbon Dioxide 28.0, Anion Gap 9, BUN 18, Creatinine 1.49 H, Estim Creat Clear Calc 49.98 L, Est GFR (MDRD) Non-Af 39 L, BUN/Creatinine Ratio 11.7, Glucose 103 H, Calcium 13.2 H*, Troponin T Hi Sens 4Hr 30 H, Vitamin D 25-Hydroxy 73.6, Vit D 1,25-Dihydroxy Cancelled, PTH Intact 10 L 09/06/25 00:18: Ionized Calcium 1.68 H 09/06/25 02:18: Sodium 145, Potassium 2.7 L*, Chloride 109 H, Carbon Dioxide 27.1, Anion Gap 9, BUN 17, Creatinine 1.39 H, Estim Creat Clear Calc 53.58, Est GFR (MDRD) Non-Af 43 L, BUN/Creatinine Ratio 11.9, Glucose 104 H, Calcium 12.7 H* 09/06/25 05:38: Urine pH Cancelled, Ur Random Calcium Cancelled, Urine Total Volume Cancelled, Urine Calcium 11.0, Ur Calcium 24 Hr Cancelled 09/06/25 05:45: WBC 10.9, RBC 3.63 L, Hgb 10.7 L, Hct 32.5 L, MCV 89.5, MCH 29.5, MCHC 32.9, RDW Std Deviation 39.7, RDW Coeff of Christiano 12.1, Plt Count 297, MPV 9.5, Immature Gran % (Auto) 0.400, Neut % (Auto) 73.6 H, Lymph % (Auto) 17.9 L, Dane % (Auto) 6.3, Eos % (Auto) 1.4, Baso % (Auto) 0.4, Absolute Neuts (auto) 8.0 H, Absolute Lymphs (auto) 1.95, Nucleated RBC % 0, Sodium 143, Potassium 3.3, Chloride 108, Carbon Dioxide 25.5, Anion Gap 10, BUN 15, Creatinine 1.30 H, Estim Creat Clear Calc 57.29, Est GFR (MDRD) Non-Af 46 L, BUN/Creatinine Ratio 11.6, Glucose 110 H, Hemoglobin A1c 6.0 H, Calcium 12.1 H, Total Bilirubin 0.25, AST 24, ALT 18, Alkaline Phosphatase 62, Total Protein 6.0, Albumin 3.4, Globulin 2.7, Albumin/Globulin Ratio 1.3, TSH 0.896, Free T4 1.10 Micro: Microbiology 09/05/25 20:35 Mucosa - Nose SARS-CoV-2, Influenza & RSV (PCR) - Final Radiography Diagnostic Testing: Radiology Impression Brain CT 09/05/25 20:14 IMPRESSION: No acute intracranial abnormality. Reading Location: [facility] Chest X-Ray 09/05/25 20:42 IMPRESSION: Interval appearance of minimal bilateral basilar atelectatic pulmonary changes. Reading [facility] [address] Physical Exam Const alert, oriented x3 and no apparent distress Constitutional Narrative: Patient is alert but exhibits some confusion General Appearance: cooperative, well kempt and well developed Orientation / Consciousness: awake, oriented to person and confused HEENT normocephalic, head/scalp atraumatic and moist oral mucous membranes Eyes PERRL, EOMs intact bilaterally and conjunctivae normal Neck supple, no JVD, thyroid normal and no carotid bruits General: trachea midline Resp normal respiratory effort, no retractions, no use of accessory muscles and clear to auscultation bilaterally Auscultation: Negative for rales, rhonchi or wheezes Cardio regular rate, regular rhythm, S1 normal heart sound, S2 normal heart sound, no murmurs, no rub and no gallops GI normal to inspection, nondistended, normoactive bowel sounds, soft to palpation, non-tender and non-distended Extremity no clubbing, cyanosis or edema Skin no rashes or lesions noted General Skin Exam: no breakdown Neuro CN's II-XII intact bilaterally, moves all extremities, no focal motor deficits and no sensory deficits noted Neuro Narrative: Patient exhibits confusion Sensorium / Orientation: awake, alert and oriented to person Speech: speech normal Psych Psych Narrative: Patient is confused Assessment & Plan Assessment/Plan (1) UTI (urinary tract infection): (2) Hypercalcemia: PLAN: Plan 1. Hypercalcemia-exact etiology unclear at this time, nephrology will see the patient and labs will be monitored #2 metabolic encephalopathy secondary to hypercalcemia-this should improve, supportive care, PT and OT #3 acute cystitis-patient will remain on Rocephin #4 essential hypertension-patient will remain on lisinopril, the lisinopril hydrochlorothiazide combination will be discontinued #5 hypokalemia-patient will be given potassium replacement Total clinical time spent by myself addressing the patient's medical issues, reviewing all of her data, and collaborating with patient's care team: 35 minutes Charges/Coding Visit Charges Inpatient E&M: 37145 Subs Hosp L2
[2025-09-06 18:41] LABS: AST(SGOT) 24 U/L (<=31); Alanine Aminotransfer ALT/SGPT 18 U/L (<=34); Albumin, Serum 3.4 g/dL (3.4-4.8); Alkaline Phosphatase 62 U/L (35-104); Anion Gap 9 (5-15); BUN 14 mg/dL (4-19); BUN/Creat Ratio 11.2 RATIO (10-20); Calcium,Total 11.8 mg/dL (7.6-11.0); Carbon Dioxide 24.1 mmol/L (21.0-32.0); Chloride 109 mmol/L (98-108); Estimated Creatinine Clearance 60.39 ml/min (50-250); Globulin 2.9 g/dL (2.2-4.2); Glucose 100 mg/dL (70-99); Potassium 3.3 mmol/L (3.3-5.1)
--- NOTE | 2025-09-06 18:48 | PCM.CONS.R ---
Assessment & Plan Assessment/Plan (1) Hypercalcemia: PLAN: No recent labs available for comparison. Last set of labs for at least 2 years old. At that time calcium was normal. Vitamin D is okay, PTH is appropriately suppressed. No significant constitutional symptoms, no history of malignancy. Will send 1, 25-hydroxy vitamin D. Serum electrophoresis has been ordered. If all of this workup is negative, may need scan of chest and abdomen/bone scan etc. For treatment, she is on IV fluids. Already received a dose of pamidronate. Calcium is improving. Discussed with family bedside. HPI Consult Data Date of Consult: 09/06/25 PCP / Referring MD: DAVID HPI Narrative HPI Narrative: MAICOL ALEXANDER, is a 60 F who presents To the hospital with confusion. Nephrology on consultation in view of hypercalcemia. She is originally from [place], has been here for few years now. Was seeing primary care physician in [facility], has not established with any local doctors on a regular basis. Has been seeking medical care on an as-needed basis. No recent labs in the last couple of years. Was found to have confusion, severe hypercalcemia on admission. She says she was diagnosed with osteopenia while she was in [place], was recommended to take vitamin D and calcium supplements. No recent dose changes. She is more alert and awake as per family bedside. [facility] Medical History Obesity Tobacco use Hypothyroid HTN (hypertension) Home Medications ?Medication ?Instructions ?Recorded ?Last Taken ?Type lisinopril 20 1 tab PO DAILY 04/08/22 Unknown History mg-hydrochlorothiazide 12.5 mg tablet thyroid (pork) 30 mg tablet 1 tab PO DAILY 04/08/22 Unknown History ([place] Thyroid) Saccharomyces boulardii 250 mg 250 mg PO DAILY stomach 09/06/25 Unknown History capsule (Daily Probiotic (S. boulardii)) ascorbic acid (vitamin C) 500 mg 1 g PO DAILY supplement 09/06/25 Unknown History tablet (C-500) calcium 600 mg (as 1 tab PO DAILY supplement 09/06/25 Unknown History carbonate)-vitamin D3 5 mcg (200 unit) tablet cholecalciferol (vitamin D3) 50 50 mcg PO DAILY supplement 09/06/25 Unknown History mcg (2,000 unit) capsule (Vitamin D3) tumeric 1,000 mg PO DAILY supplement 09/06/25 Unknown History Allergy/AdvReac Type Severity Reaction Status Date / Time codeine Allergy Nausea Verified 09/05/25 19:36 Penicillins (PCN) Allergy Rash Verified 09/05/25 19:36 Family History Mother COPD (chronic obstructive pulmonary disease) Venous thromboembolism (VTE) Father Alcoholic cirrhosis Alcohol abuse Surgical History History of dental surgery Social History household members: significant other Smoking Status: Current every day smoker tobacco type: e-cigarettes Electronic Cigarette Use: with nicotine how long ago did patient quit smoking: Smoked cigarettes teen until age 32 y/o 1 ppd->vaping heavy. alcohol intake: never substance use type: does not use ROS ROS Narrative negative except above Physical Exam Narrative Alert awake no obvious distress no pallor no icterus no JVD s1s2 no murmurs lungs clear abdomen soft no organomegaly no edema no cyanosis Lab / Micro Data 09/06/25 05:45 09/06/25 18:12 Labs: Laboratory Results - last 24 hr 09/05/25 20:25: WBC 11.3 H, RBC 4.04 L, Hgb 12.0, Hct 36.2 L, MCV 89.6, MCH 29.7, MCHC 33.1, RDW Std Deviation 40.3, RDW Coeff of Christiano 12.2, Plt Count 345, MPV 9.6, Immature Gran % (Auto) 0.300, Neut % (Auto) 70.6 H, Lymph % (Auto) 21.0, [place] % (Auto) 6.0, Eos % (Auto) 1.7, Baso % (Auto) 0.4, Absolute Neuts (auto) 8.0 H, Absolute Lymphs (auto) 2.38, Nucleated RBC % 0, Sodium 141, Potassium 2.9 L, Chloride 102, Carbon Dioxide 29.8, Anion Gap 10, BUN 18, Creatinine 1.61 H, Estim Creat Clear Calc 44.72 L, Est GFR (MDRD) Non-Af 36 L, BUN/Creatinine Ratio 11.1, Glucose 139 H, Lactic Acid 1.7, Calcium 14.8 H*, Phosphorus 3.1, Magnesium 1.7, Total Bilirubin 0.36, AST 29, ALT 21, Alkaline Phosphatase 70, Troponin T High Sens 33 H, Total Protein 6.9, Albumin 3.7, Globulin 3.2, Albumin/Globulin Ratio 1.2, PTH Intact 11, Ethyl Alcohol < 10.1 09/05/25 22:15: Urine Color Yellow, Urine Clarity Sl. Cloudy, Urine pH 6.0, Ur Specific [place] 1.020, Urine Protein 30 H, Urine Glucose (UA) Normal, Urine Ketones Negative, Urine Occult Blood 25 H, Urine Nitrite Positive H, Urine Bilirubin Negative, Urine Urobilinogen Normal, Ur Leukocyte Esterase 500 H, Urine RBC 0-5 SEEN, Urine WBC 50-100 SEEN, Ur Squamous Epith Cells 5-10 SEEN, Urine Bacteria 3+, Urine Mucus 0 SEEN, Urine Opiates Screen NEGATIVE, U Buprenorphine Qual NEGATIVE, Ur Oxycodone Screen NEGATIVE, Urine Methadone Screen NEGATIVE, Urine Fentanyl Screen NEGATIVE, Ur Barbiturates Screen NEGATIVE, Ur Phencyclidine Scrn NEGATIVE, Ur Amphetamines Screen NEGATIVE, U Benzodiazepines Scrn NEGATIVE, Urine Cocaine Screen NEGATIVE, U Cannabinoids Screen NEGATIVE 09/05/25 22:27: Troponin T Hi Sens 2 Hr 35 H 09/06/25 00:12: Sodium 142, Potassium 2.9 L, Chloride 105, Carbon Dioxide 28.0, Anion Gap 9, BUN 18, Creatinine 1.49 H, Estim Creat Clear Calc 49.98 L, Est GFR (MDRD) Non-Af 39 L, BUN/Creatinine Ratio 11.7, Glucose 103 H, Calcium 13.2 H*, Troponin T Hi Sens 4Hr 30 H, Vitamin D 25-Hydroxy 73.6, Vit D 1,25-Dihydroxy Cancelled, PTH Intact 10 L 09/06/25 00:18: Ionized Calcium 1.68 H 09/06/25 02:18: Sodium 145, Potassium 2.7 L*, Chloride 109 H, Carbon Dioxide 27.1, Anion Gap 9, BUN 17, Creatinine 1.39 H, Estim Creat Clear Calc 53.58, Est GFR (MDRD) Non-Af 43 L, BUN/Creatinine Ratio 11.9, Glucose 104 H, Calcium 12.7 H* 09/06/25 05:38: Urine pH Cancelled, Ur Random Calcium Cancelled, Urine Total Volume Cancelled, Urine Calcium 11.0, Ur Calcium 24 Hr Cancelled 09/06/25 05:45: WBC 10.9, RBC 3.63 L, Hgb 10.7 L, Hct 32.5 L, MCV 89.5, MCH 29.5, MCHC 32.9, RDW Std Deviation 39.7, RDW Coeff of Christiano 12.1, Plt Count 297, MPV 9.5, Immature Gran % (Auto) 0.400, Neut % (Auto) 73.6 H, Lymph % (Auto) 17.9 L, [place] % (Auto) 6.3, Eos % (Auto) 1.4, Baso % (Auto) 0.4, Absolute Neuts (auto) 8.0 H, Absolute Lymphs (auto) 1.95, Nucleated RBC % 0, Sodium 143, Potassium 3.3, Chloride 108, Carbon Dioxide 25.5, Anion Gap 10, BUN 15, Creatinine 1.30 H, Estim Creat Clear Calc 57.29, Est GFR (MDRD) Non-Af 46 L, BUN/Creatinine Ratio 11.6, Glucose 110 H, Hemoglobin A1c 6.0 H, Calcium 12.1 H, Total Bilirubin 0.25, AST 24, ALT 18, Alkaline Phosphatase 62, Total Protein 6.0, Albumin 3.4, Globulin 2.7, Albumin/Globulin Ratio 1.3, TSH 0.896, Free T4 1.10 09/06/25 18:12: Sodium 142, Potassium 3.3, Chloride 109 H, Carbon Dioxide 24.1, Anion Gap 9, BUN 14, Creatinine 1.24 H, Estim Creat Clear Calc 60.39, Est GFR (MDRD) Non-Af 49 L, BUN/Creatinine Ratio 11.2, Glucose 100 H, Calcium 11.8 H, Total Bilirubin 0.27, AST 24, ALT 18, Alkaline Phosphatase 62, Total Protein 6.3, Albumin 3.4, Globulin 2.9, Albumin/Globulin Ratio 1.2 Micro: Microbiology 09/05/25 20:35 Mucosa - Nose SARS-CoV-2, Influenza & RSV (PCR) - Final Imaging Radiology Impression Brain CT 09/05/25 20:14 IMPRESSION: No acute intracranial abnormality. Reading Location: [facility] Chest X-Ray 09/05/25 20:42 IMPRESSION: Interval appearance of minimal bilateral basilar atelectatic pulmonary changes. Reading [facility]
[2025-09-06 20:00] VITALS: BP 162/100; PULSE 88; RESP 16; TEMP 36.6; O2SAT 94
[2025-09-06 20:27] LABS: Magnesium 1.4 mg/dL (1.5-2.2)
[2025-09-07] VITALS (7 sets, daily range): BP systolic 139–178; BP diastolic 64–98; PULSE 88–97; RESP 18; TEMP 36.5–36.8; O2SAT 94–98; BMI 33.5
[2025-09-07 07:16] LABS: Vitamin D,25 Hydroxy 77.6 ng/mL (30-100)
[2025-09-07 08:30] LABS: AST(SGOT) 28 U/L (<=31); Alanine Aminotransfer ALT/SGPT 21 U/L (<=34); Albumin, Serum 3.6 g/dL (3.4-4.8); Alkaline Phosphatase 65 U/L (35-104); Anion Gap 12 (5-15); BUN 13 mg/dL (4-19); BUN/Creat Ratio 10.6 RATIO (10-20); Calcium,Total 11.2 mg/dL (7.6-11.0); Carbon Dioxide 22.0 mmol/L (21.0-32.0); Chloride 107 mmol/L (98-108); Estimated Creatinine Clearance 62.13 ml/min (50-250); Globulin 3.1 g/dL (2.2-4.2); Glucose 98 mg/dL (70-99); Potassium 3.2 mmol/L (3.3-5.1)
[2025-09-07] MEDS: Heparin Injection (Vial) 5,000 UNIT/ML VIAL 5000 UNIT SC (09:30)
[2025-09-07] MEDS: Nicotine (PBKC) 21 MG Patch TD (09:31)
[2025-09-07] MEDS: Potassium Chloride Oral Tablet 20 MEQ 40 MEQ PO (10:56)
[2025-09-07] MEDS: 0.9% Saline Lock 10 ML Syringe IV (11:01)
--- NOTE | 2025-09-07 14:08 | PCM.PN.REN ---
Subjective Subjective Sitting in chair. No overnight events. Denies any complaints. Objective Data Objective Data Vital Signs: Vital Signs Temp Pulse Resp BP Pulse Ox O2 Del Method 98 F 94 18 139/64 H 94 Room Air 09/07/25 09:26 09/07/25 11:01 09/07/25 09:26 09/07/25 11:33 09/07/25 09:26 09/07/25 10:37 Oxygen Delivery Method Room Air Weight: 103.1 kg Body Mass Index (BMI) 33.5 Intake & Output: Intake and Output for Last 24 Hours 09/05/25 09/06/25 09/07/25 23:59 23:59 23:59 Intake Total 1050 / 1050 4812.5 / 5312.5 500 / 500 Output Total 0 / 250 250 / 250 Balance 1050 / 1050 4812.5 / 5062.5 250 / 250 Lab / Micro Data 09/06/25 05:45 09/07/25 05:56 Labs: Laboratory Results - last 24 hr 09/06/25 18:12: Sodium 142, Potassium 3.3, Chloride 109 H, Carbon Dioxide 24.1, Anion Gap 9, BUN 14, Creatinine 1.24 H, Estim Creat Clear Calc 60.39, Est GFR (MDRD) Non-Af 49 L, BUN/Creatinine Ratio 11.2, Glucose 100 H, Calcium 11.8 H, Magnesium 1.4 L, Total Bilirubin 0.27, AST 24, ALT 18, Alkaline Phosphatase 62, Total Protein 6.3, Albumin 3.4, Globulin 2.9, Albumin/Globulin Ratio 1.2 09/07/25 05:56: Sodium 141, Potassium 3.2 L, Chloride 107, Carbon Dioxide 22.0, Anion Gap 12, BUN 13, Creatinine 1.20, Estim Creat Clear Calc 62.13, Est GFR (MDRD) Non-Af 51 L, BUN/Creatinine Ratio 10.6, Glucose 98, Calcium 11.2 H, Total Bilirubin 0.37, AST 28, ALT 21, Alkaline Phosphatase 65, Total Protein 6.7, Albumin 3.6, Globulin 3.1, Albumin/Globulin Ratio 1.2, Vitamin D 25-Hydroxy 77.6 Micro: Microbiology 09/05/25 20:35 Mucosa - Nose SARS-CoV-2, Influenza & RSV (PCR) - Final Physical Exam Narrative Alert awake no obvious distress s1s2 no murmurs lungs clear abdomen soft no edema no cyanosis Assessment & Plan Assessment/Plan (1) Hypercalcemia: PLAN: No recent labs available for comparison. Last set of labs for at least 2 years old. At that time calcium was normal. Vitamin D is okay, PTH is appropriately suppressed. No significant constitutional symptoms, no history of malignancy. Will send 1, 25-hydroxy vitamin D. Serum electrophoresis has been ordered. If all of this workup is negative, may need scan of chest and abdomen/bone scan etc. For treatment, she is on IV fluids. Already received a dose of pamidronate. Calcium is improving. Discussed with family bedside. 09/07/2025; calcium improving 11.2 today (peak 14.8). 25-hydroxy vitamin D 77.6. PTH 10. Vitamin D 1, 25 pending. Serum electrophoresis pending. Discussed with patient importance of avoiding calcium supplements for now (including tums), she will also be off hydrochlorothiazide. Serum creatinine was 1.6 on admission, today 1.2. Overall kidney function has improved, calcium levels improving. Patient can be discharged per renal standpoint when cleared by primary team. Reviewed with patient importance of follow-up in our [place] office, I will make appointment with Dr. Haas. Assessment and plan reviewed with Dr. Haas
--- NOTE | 2025-09-07 15:16 | DCINST_ITS ---
Discharge Instructions DC O2, CPAP, BIPAP needs Home O2 Discharge instructions: No Dressing / Incision Discharge Activity: Return to Normal Activity and Use Walker (If necessary) Weight Bearing Status: Full weight bearing Follow Up Care Test Results: Test results from this visit will be discussed in further detail at your follow- up appointment, if applicable. Discharge Plan Admission Admit Date/Time: 09/05/25 22:22 Primary Reason for Your Visit: High calcium level, urinary tract infection Attending Provider: Ramone Parra Primary Care Provider: Care Physician,Zeinab Primary Consulting Providers: Itzel Bello; Kain Haas Instructions Additional Instructions / Restrictions: Do not take any vitamin D or calcium Discharge Orders/Prescriptions Prescriptions: New lisinopril 40 mg tablet 40 mg PO DAILY Qty: 30 1RF ciprofloxacin HCl 250 mg tablet 250 mg PO BID Qty: 14 0RF Rx Instructions: Start on 09/08/2025 tamsulosin 0.4 mg capsule 0.4 mg PO QHS Qty: 30 1RF Continued thyroid (pork) [[place] Thyroid] 30 mg tablet 1 tab PO DAILY Patient Comments: TAKE 1 TABLET BY MOUTH EVERY MORNING ON EMPTY STOMACH ascorbic acid (vitamin C) [C-500] 500 mg tablet 1 g PO DAILY Saccharomyces boulardii [Daily Probiotic (S. boulardii)] 250 mg capsule 250 mg PO DAILY tumeric 1,000 mg PO DAILY Discontinued lisinopril-hydrochlorothiazide 20-12.5 mg tablet 1 tab PO DAILY Patient Comments: TAKE 1 TABLET BY MOUTH EVERY DAY cholecalciferol (vitamin D3) [Vitamin D3] 50 mcg (2,000 unit) capsule 50 mcg PO DAILY calcium carbonate-vitamin D3 600 mg-5 mcg (200 unit) tablet 1 tab PO DAILY Referrals / Follow Up: Kain Haas MD [Med Staff - Consulting, Nephrology] - See Referral Note Referral Note: Office will call you to schedule follow-up appointment Care Physician,No Primary [Primary Care Provider, Medical] Viktor Maher NP-C [[facility]] - See Referral Note Referral Note: Call to make an appointment to establish care, you will need to be seen within 2 to 3 weeks, he is with [facility] Disposition Disposition (needs filled in before D/C Order can be placed): Home, Self Care
--- NOTE | 2025-09-07 15:30 | DS.PCM_ITS ---
Providers Date of Admission: 09/05/25 Date of Discharge: 09/07/25 Primary Care Physician: Zeinab Primary Care Phys Consultations 09/06/25 10:45 Consult: Nephrology Routine Consulting Provider: Kain Haas Reason for Consult: hypercalcemia EMERGENT Consult: No MD Notified: Yes Date Notified: 09/06/25 Time Notified: 10:46 Method of Notification: Verbal Reason For Visit: HYPERCALCEMIA, UTI POSS FAILED OUTPATIENT [place] Diagnosis Discharge Diagnosis (1) UTI (urinary tract infection): Status: Acute Code(s): N39.0 - Urinary tract infection, site not specified (2) Hypercalcemia: Status: Acute Code(s): E83.52 - Hypercalcemia Plan 1. Hypercalcemia-exact etiology unclear at this time, nephrology will see the patient and labs will be monitored #2 metabolic encephalopathy secondary to hypercalcemia-this should improve, supportive care, PT and OT #3 acute cystitis-patient will remain on Rocephin #4 essential hypertension-patient will remain on lisinopril, the lisinopril hydrochlorothiazide combination will be discontinued #5 hypokalemia-patient will be given potassium replacement Total clinical time spent by myself addressing the patient's medical issues, reviewing all of her data, and collaborating with patient's care team: 35 minutes Medications at Discharge Home Medications thyroid (pork) 30 mg tablet ([place] Thyroid) 1 tab PO DAILY thyroid 04/08/22 Saccharomyces boulardii 250 mg capsule (Daily Probiotic (S. boulardii)) 250 mg PO DAILY stomach 09/06/25 ascorbic acid (vitamin C) 500 mg tablet (C-500) 1 g PO DAILY supplement 09/06/25 tumeric 1,000 mg PO DAILY supplement 09/06/25 ciprofloxacin HCl 250 mg tablet 250 mg PO BID #14 tabs 09/07/25 lisinopril 40 mg tablet 40 mg PO DAILY #30 tabs 09/07/25 tamsulosin 0.4 mg capsule 0.4 mg PO QHS #30 caps 09/07/25 Hospital Course Operations None Procedures None Summary of Care Provided Minutes Spent on Discharge: 31 Hospital Course: This 60-year-old white female was seen in the emergency room [facility] for worsening confusion over the past 3 to 4 days. Patient also had an episode of midsternal chest pain and shortness of breath the day before. Workup in the emergency room was abnormal for WBC of 11.3, potassium was 2.9, creatinine was 1.61, calcium was elevated at 14.8 and urinalysis was unremarkable. Chest x-ray was normal. CT of the brain showed no acute abnormality. Patient was admitted to PCU and subcutaneous calcitonin and Zometa IV was administered. IV fluids were given and the patient was seen in consultation by nephrology, patient's potassium was replenished. Patient's parathyroid hormone was not elevated, AP serum protein electrophoresis was drawn to rule out any lunacy such as multiple myeloma. Patient's calcium did trend downward during her hospital stay. On 09/07/2025, patient was seen and examined: On examination she appeared in good health and spirits, she does not appear to be in any distress. Vital signs as documented. Skin warm and dry and without overt rashes. Neck without JVD, thyroid appears normal, trachea is midline, neck is supple. Lungs clear, normal air movement was noted. Heart exam notable for regular rhythm, normal sounds and absence of murmurs, rubs or gallops. Abdomen unremarkable and without evidence of organomegaly, masses, or abdominal aortic enlargement, bowel sounds are present in all 4 quadrants, no abdominal tenderness was noted. Extremities nonedematous, no cyanosis was noted, no clubbing was noted. Neuro: Cranial nerves II through XII are grossly intact, no focal motor deficits were noted, sensation to light touch and pinprick is intact, motor exam 5/5 throughout. Psych: Patient is alert and oriented x3, she does not appear anxious or depressed, she does not appear agitated. Patient was discharged home in stable condition on 09/07/2025. Weight / BMI Weight Weight: 103.1 kg Body Mass Index (BMI) 33.5 ABG / Lab / Microbiology Data 09/06/25 05:45 09/07/25 05:56 Laboratory: Laboratory Results - last 24 hr 09/06/25 18:12: Sodium 142, Potassium 3.3, Chloride 109 H, Carbon Dioxide 24.1, Anion Gap 9, BUN 14, Creatinine 1.24 H, Estim Creat Clear Calc 60.39, Est GFR (MDRD) Non-Af 49 L, BUN/Creatinine Ratio 11.2, Glucose 100 H, Calcium 11.8 H, M agnesium 1.4 L, Total Bilirubin 0.27, AST 24, ALT 18, Alkaline Phosphatase 62, Total Protein 6.3, Albumin 3.4, Globulin 2.9, Albumin/Globulin Ratio 1.2 09/07/25 05:56: Sodium 141, Potassium 3.2 L, Chloride 107, Carbon Dioxide 22.0, Anion Gap 12, BUN 13, Creatinine 1.20, Estim Creat Clear Calc 62.13, Est GFR (MDRD) Non-Af 51 L, BUN/Creatinine Ratio 10.6, Glucose 98, Calcium 11.2 H, Total Bilirubin 0.37, AST 28, ALT 21, Alkaline Phosphatase 65, Total Protein 6.7, Albumin 3.6, Globulin 3.1, Albumin/Globulin Ratio 1.2, Vitamin D 25-Hydroxy 77.6 Microbiology: Microbiology 09/05/25 23:18 Urine, Random Urine Culture - Final Gram negative thais Mixed Gram Positive Organisms 09/05/25 20:35 Mucosa - Nose SARS-CoV-2, Influenza & RSV (PCR) - Final D/C Instructions Weight Bearing Status: Full weight bearing DC O2, CPAP, BIPAP Needs Home O2 Discharge instructions: No Meaningful Use Info Meaningful Use Meaningful Use Diagnoses (Choose all that apply): None applicable Discharge Plan Admission Admit Date/Time: 09/05/25 22:22 Primary Reason for Your Visit: High calcium level, urinary tract infection Attending Provider: Ramone Parra Primary Care Provider: Care Physician,No Primary Consulting Providers: Itzel Bello; Kain Haas Instructions Additional Instructions / Restrictions: Do not take any vitamin D or calcium Discharge Orders/Prescriptions Prescriptions: New lisinopril 40 mg tablet 40 mg PO DAILY Qty: 30 1RF ciprofloxacin HCl 250 mg tablet 250 mg PO BID Qty: 14 0RF Rx Instructions: Start on 09/08/2025 tamsulosin 0.4 mg capsule 0.4 mg PO QHS Qty: 30 1RF Continued thyroid (pork) [[place] Thyroid] 30 mg tablet 1 tab PO DAILY Patient Comments: TAKE 1 TABLET BY MOUTH EVERY MORNING ON EMPTY STOMACH ascorbic acid (vitamin C) [C-500] 500 mg tablet 1 g PO DAILY Saccharomyces boulardii [Daily Probiotic (S. boulardii)] 250 mg capsule 250 mg PO DAILY tumeric 1,000 mg PO DAILY Discontinued lisinopril-hydrochlorothiazide 20-12.5 mg tablet 1 tab PO DAILY Patient Comments: TAKE 1 TABLET BY MOUTH EVERY DAY cholecalciferol (vitamin D3) [Vitamin D3] 50 mcg (2,000 unit) capsule 50 mcg PO DAILY calcium carbonate-vitamin D3 600 mg-5 mcg (200 unit) tablet 1 tab PO DAILY Referrals / Follow Up: Kain Haas MD [Med Staff - Consulting, Nephrology] - See Referral Note Referral Note: Office will call you to schedule follow-up appointment Care Physician,No Primary [Primary Care Provider, Medical] Viktor Maher, COMMUNICATIONS DEPARTMENT CHAIR-C [[facility]] - See Referral Note Referral Note: Call to make an appointment to establish care, you will need to be seen within 2 to 3 weeks, he is with [facility] Disposition Disposition (needs filled in before D/C Order can be placed): Home, Self Care Charges/Coding Visit Charges Inpatient E&M: 22914 Disch Hosp >30min
--- NOTE | 2025-09-07 16:15 | PHA.DC_ITS ---
Pharmacy [facility] has performed discharge medication counseling for this patient. The patient was counseled on the following discharge medications and changes in medications for homegoing review. - Ciprofloxacin 250 mg tablet, Lisinopril 40 mg tablet, Tamsulosin 0.4 mg capsule. The Reason for Use, instructions for use, and potential side effects were reviewed for all new medications. The patient's questions regarding all of their medications were answered. - Answered questions regarding supplements, vitamins and the way they are used in the body. We also discussed osteopenia and how vitamin D and calcium are used as treatments to prevent broken bones. At this time, the patient had no further questions. The patient was able to verbally demonstrate an understanding of their discharge medications. Medications at Discharge Home Medications thyroid (pork) 30 mg tablet ([place] Thyroid) 1 tab PO DAILY thyroid 04/08/22 Saccharomyces boulardii 250 mg capsule (Daily Probiotic (S. boulardii)) 250 mg PO DAILY stomach 09/06/25 ascorbic acid (vitamin C) 500 mg tablet (C-500) 1 g PO DAILY supplement 09/06/25 tumeric 1,000 mg PO DAILY supplement 09/06/25 ciprofloxacin HCl 250 mg tablet 250 mg PO BID #14 tabs 09/07/25 lisinopril 40 mg tablet 40 mg PO DAILY #30 tabs 09/07/25 tamsulosin 0.4 mg capsule 0.4 mg PO QHS #30 caps 09/07/25
--- NOTE | 2025-09-07 16:16 | CASEMGMT ---
Patient has order for discharge. RN CM in to discuss needs at discharge, fibaylee at bedside. Patient states she ordered walker from [employer]. [facility]. Patient denies further needs or concerns. Patient and fiance had no further questions or concerns.
[2025-09-08 16:09] LABS: Albumin 2.9 g/dL (2.9-4.4); Gamma Globulin 1.0 g/dL (0.4-1.8); Immunoglobulin A 223 mg/dL (87-352); Immunoglobulin G 1026 mg/dL (586-1602); Immunoglobulin M 69 mg/dL (26-217); PROEL- TOTAL PROTEIN 5.8 g/dL (6.0-8.5)
[2025-09-11 13:08] LABS: Vitamin D 1,25-Dihydroxy 19.5 pg/mL (24.8-81.5)
== END 2025-09-07 16:49 | disposition home or self-care (01) | DRG 640 ==
LOC: ED 22:22 → PCU 22:46
PROVIDERS: Nurse Practitioner Adult Health; Admitting Provider Family Medicine; Emergency Provider Student in an Organized Health Care Education/Training Program; Visit Provider Internal Medicine
DX: E83.52 Hypercalcemia (principal); G93.41 Metabolic encephalopathy; N30.00 Acute cystitis without hematuria; I10 Essential (primary) hypertension; E03.9 Hypothyroidism, unspecified; E66.9 Obesity, unspecified; I44.1 Atrioventricular block, second degree; E87.6 Hypokalemia; F43.0 Acute stress reaction; F17.290 Nicotine dependence, other tobacco product, uncomplicated; R73.9 Hyperglycemia, unspecified; Z79.899 Other long term (current) drug therapy; Z68.35 Body mass index [BMI] 35.0-35.9, adult
CPT/HCPCS: 36415; 70450; 71046; 80048; 80053; 80307; 81001; 82077; 82306; 82330; 82652; 82784; 83036; 83605; 83735; 83970; 84100; 84165; 84439; 84443; 84484; 85025; 86334; 87086; 87088; 87631; 93005; 94668; 97162; 99285; J2430; A4216; J0630